=== PATIENT | male | born 1970 | race Caucasian/White ===

== ENCOUNTER → 2016-06-08 | Outpatient (CLI) | payer OTHER ==
[~2016-06-08] MED LIST: AMOX875T PO; DPKSR/250 PO; LAMO200T38 PO
== END | disposition home or self-care (01) ==
LOC: C.LAB1850 11:41
PROVIDERS: ATTEND Psychiatry & Neurology Neurology
DX: G40.209 Localization-related (focal) (partial) symptomatic epilepsy and epileptic syndromes with complex partial seizures, not intractable, without status epilepticus (principal)

== ENCOUNTER 2016-10-02 02:32 | Inpatient (IN) | payer OTHER ==
[2016-10-02] VITALS (19 sets, daily range): BP systolic 86–122; BP diastolic 50–85; PULSE 59–83; TEMP 36.7–37; O2SAT 90–100; Ht 167.6 cm; Wt 106.1 kg
[~2016-10-02] VITALS: Ht 167.6 cm; Wt 106.1 kg
[~2016-10-02 02:32] MED LIST changes: -AMOX875T PO
[2016-10-02] MEDS ORDERED: LORAZEPAM 2 MG/ML 1 ML VIAL ONE (02:41)
[2016-10-02] MEDS ORDERED: NURSING VERBAL MED ORDER ONE (02:42)
--- NOTE | 2016-10-02 02:48 | EMERGENCY ROOM VISIT NOTE ---
History Report prepared by Lindsey: Renea Navarrete Under the Supervision of: Dr. Mamie Rodrigues D.O. First contact with patient: 02:41 Chief Complaint: SEIZURE Stated Complaint: SEIZURE History of Present Illness The patient is a 46 year old male who presents to the Emergency Room with complaints of a sudden seizure that began prior to arrival. Per the patient's , the patient arrived at her job to pick her up from work. She states that she thought she saw the patient scratching his arm, but when she looked back at him, she saw that he was actively seizing. The patient's states that the patient fell down, but does not believe that the patient injured himself. She notes that she had multiple people around helping to take care of him. The patient's notes that the patient has a history of seizures, noting that his last seizure was over five years ago. EMS reports that upon arrival, the patient was not actively seizing, but notes that the patient as post ictal. EMS reports that the patient began actively seizing again and was given 2 mg of Ativan prior to arrival. EMS reports that the patient never came out of his post ictal phase. EMS reports that the patient began seizing again upon arrival to the emergency department. Source of History: spouse/significant other (), EMS Onset: prior to arrival Position: other (global) Quality: other (seizure) Timing: other (sudden) Note: Associated Symptoms: Post ictal Review of Systems See HPI for pertinent positives & negatives. A total of 10 systems reviewed and were otherwise negative. Past Medical & Surgical Medical Problems: (1) Cerebral Palsy Nos (2) Grand Mal Status (3) Hematuria Family History Patient reports no known family medical history. Social History Smoking Status: Never Smoker Marital Status: Housing Status: lives with family Occupation Status: employed Current/Historical Medications Scheduled Divalproex Sodium (Depakote Extended-Release), 500 MG PO BID Lamotrigine (Lamictal), 200 MG PO BID Allergies Coded Allergies: No Known Allergies (Verified , 10/02/16) Physical Exam Vital Signs Date Time Temp Pulse Resp B/P Pulse Ox O2 Delivery O2 Flow Rate FiO2 10/02/16 04:23 74 18 111/78 99 Non-Rebreather 15.0 10/02/16 03:14 97 Non-Rebreather 10/02/16 03:09 78 18 159/118 97 Non-Rebreather 10/02/16 02:46 96 Physical Exam General: Semi-responsive, vomited. HEENT: Head - normocephalic and atraumatic Pupils are 6 mm and nonreactive. Extraocular eye muscles are intact, and sclera are anicteric. Nose - moist nasal mucosa without discharge. Mouth - moist buccal mucosa. Oropharynx is nonerythematous and there is no tonsillar exudate or edema noted. Neck: Supple; no JVD, nuchal rigidity, cervical lymphadenopathy, or auscultated bruits. Heart: Tachycardic rate and regular rhythm. There is a normal S1 and S2 with no murmurs, clicks, or gallops appreciated. Lungs: Clear to auscultation bilaterally with no wheezes, rales, or rhonchi. Abdomen: Soft, completely nontender, nondistended, with good bowel sounds. There are no palpable pulsatile masses or hepatosplenomegaly. There is no guarding, rigidity, or rebound noted. Extremities: No evidence of cyanosis, clubbing, or edema. There are easily palpable peripheral pulses. Skin: warm and dry with good turgor and no rashes. Neuro: Tonic clonic movements at times, would not follow commands. 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 No definite acute infarct by CT. No acute intracranial hemorrhage. No midline shift or hydrocephalus. Diffuse parenchymal atrophy. 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 Radiologist: Sedrick Hall MD Study read at 0320 and initial results transmitted at 0334. Laboratory Results Test 10/02/16 03:35 Valproic Acid (Depakene) Level 47 mcg/ml (50-100) Laboratory results per my review. Medications Administered Medications (Trade) Dose Ordered Sig/Barbara Route Start Time Stop Time Status Last Admin Dose Admin Lorazepam (Ativan Inj) 4 mg STK-MED ONCE .ROUTE 10/02/16 02:41 10/02/16 02:42 DC 10/02/16 02:41 2 MG Miscellaneous Information (Nursing Verbal Med Order) 1 ea ONE ONCE N/A 10/02/16 02:42 10/02/16 02:51 DC 10/02/16 02:42 1 EA Lorazepam 2 mg 2 mg NOW STAT IV 10/02/16 03:11 10/02/16 03:12 DC 10/02/16 03:24 2 MG Levetiracetam/ Dextrose (Keppra Iv/D5 250ml) 267 ml @ 801 mls/hr NOW STAT IV 10/02/16 05:01 10/02/16 05:20 DC 10/02/16 05:34 801 MLS/HR Procedure The patient was treated with Ativan Inj 2 mg IV, Ativan Inj 2 mg IV. ECG Indication: other (seizure) Rate (beats per minute): 84 Rhythm: normal sinus Findings: no acute ischemic change, no ectopy ED Course 0241: Past medical records reviewed. The patient was evaluated in room A10. A complete history and physical exam was performed. Ordered Ativan Inj 2 mg IV as the patient was actively seizing. Seizure precautions were taken. Laboratory studies were drawn as above. The patient went for CT scan of the brain. 0311: Per nursing staff the patient began seizing again. Ordered Ativan Inj 2 mg IV. 0356: I reevaluated the patient and he is no longer seizing and is sleeping. He is currently protecting his own airway. I discussed all the exam findings with the patient's and I discussed the treatment plan. She verbalized complete understanding and agreement. The patient will be evaluated for further treatment. 0415: I discussed the patients case with Dr. Biggs, [facility] [place]. He is going to evaluate the patient for further treatment. 0439: I discussed the patients case with Dr. Meadows, Neurology. He is in agreement with the treatment plan. 0600: I did the department of transportation paperwork to revoke the patients license at this time. Medical Decision The patient is a 46 year old male who presents to the ED with a sudden seizure. Differential diagnosis includes CVA, medication noncompliance, tonic clonic seizure, intracranial hemorrhage. Lab interpretation: white blood cell count of 9.9, hemoglobin 13.9, normal renal functions and LFTs, glucose 112, Depakote level 47. The patient has a history of seizures for which she takes Lamictal and Depakote. He has not had a seizure in quite some time. Department of transportation paperwork was filled out as a result of the seizure. The patient did have to receive a total of 3 doses of IV Ativan for recurrent seizures. He remained post ictal between seizures. This is consistent with acute status epilepticus. I discussed the case with Dr. Meadows and Dr. Mreino. The patient is hemodynamically stable. He'll receive IV Keppra. Consults Time Called: 035 Consulting Physician: KAMI Higgins Returned Call: [phone] I discussed the patients case with KAMI Higgins. He is going to evaluate the patient for further treatment. Additional Consults: Time Called: [phone] Consulted Physician: Dr. Meadows, Neurology Returned Call: [phone] Additional Comments: I discussed the patients case with Dr. Meadows, Neurology. He is in agreement with the treatment plan. Impression Primary Impression: Status epilepticus Critical Care I have personally spent greater than 45 minutes of critical care time in the direct management of this patient. This includes bedside care, interpretation of diagnostic studies, and testing, discussion with consultants, patient, and family members, and other required patient management activities. This 45 minutes is in excess of all separately billable procedures. Scribe Attestation The scribe's documentation has been prepared under my direction and personally reviewed by me in its entirety. I confirm that the note above accurately reflects all work, treatment, procedures, and medical decision making performed by me. Departure Information Dispostion Being Evaluated By Hospitalist Referrals No Doctor, Assigned (PCP)
[2016-10-02] MEDS ORDERED: LORAZEPAM 2 MG/ML 1 ML VIAL IV STA (03:11)
[2016-10-02 03:44] LABS: HEMATOCRIT 40.2 % (42-52); MEAN CELL VOLUME 92.4 fL (80-100); MEAN CORPUSCULAR HGB CONC 34.6 g/dl (32-36); MEAN PLATELET VOLUME 9.6 fL (7.4-10.4); PLATELET COUNT 267 K/uL (130-400); RED BLOOD COUNT 4.35 M/uL (4.7-6.1); WHITE BLOOD COUNT 9.95 K/uL (4.8-10.8)
[2016-10-02 04:06] LABS: ALT/SGPT 18 U/L (12-78); AST/SGOT 18 U/L (15-37); BLOOD UREA NITROGEN 13 mg/dl (7-18); BUN/CREATININE RATIO 12.1 (10-20); CALCIUM 8.2 mg/dl (8.5-10.1); CARBON DIOXIDE 31 mmol/L (21-32); CHLORIDE 106 mmol/L (98-107); GLUCOSE 112 mg/dl (70-99); POTASSIUM 3.7 mmol/L (3.5-5.1); SODIUM 143 mmol/L (136-145)
[2016-10-02 04:08] LABS: ALKALINE PHOSPHATASE 40 U/L (45-117)
[2016-10-02] MEDS ORDERED: LEVETIRACETAM IV ONE (05:00)
[2016-10-02] MEDS ORDERED: DEXTROSE 5% IV ONE (05:00)
[2016-10-02] MEDS ORDERED: ONDANSETRON INJ 2 MG/ML 2 ML VIAL IV PRN (05:00)
[2016-10-02] MEDS ORDERED: LORAZEPAM INJ 1 MG in SYRINGE 0.5 ML IV PRN (05:00)
[2016-10-02] MEDS ORDERED: MoRPHine SULFATE 2 MG/ML CARP IV PRN (05:00)
[2016-10-02] MEDS ORDERED: LEVETIRACETAM IV STA (05:01)
[2016-10-02] MEDS ORDERED: DEXTROSE 5% IV STA (05:01)
[2016-10-02] MEDS ORDERED: LORAZEPAM 2 MG/ML 1 ML VIAL IV PRN (05:15)
[2016-10-02] MEDS ORDERED: VANCOMYCIN INJ 1,000 MG in SODIUM CHLORIDE 0.9% 250ML 250 ML IV STA (05:24)
[2016-10-02] MEDS ORDERED: VANCOMYCIN INJ 2,100 MG in SODIUM CHLORIDE 0.9% 500ML 500 ML IV STA (05:32)
[2016-10-02] MEDS ORDERED: PIPERACILL/TAZOBAC IV 3.375 GM in DEXTROSE 5% 100ML 100 ML IV SCH (06:00)
--- NOTE | 2016-10-02 06:10 | History and Physical ---
History & Physical Date & Time of Service: October 02, 2016 at 05:58 Chief Complaint: Seizure Primary Care Physician: Ger Levin D.O.Int.Med. History of Present Illness Source: spouse, hospital records, EMS The patient is a 46-year-old male with past medical history including cerebral palsy and seizure disorder, with previous last known seizure 5 years ago, who presents to the emergency department with a sudden onset seizure that occurred just prior to arrival. EMS reports that upon their arrival the patient was not actively seizing but he was postictal. He then began actively seizing again and was given 2 mg of Ativan prior to arrival to the ED. He seized again upon arrival to the emergency department and received additional Ativan at that time. For the remainder of the emergency department stay the patient remained sedated and had no further seizures. He was placed on 100% mask, and did initially have significant accessory muscle use, but did settle down to more regular breathing and was converted to nasal cannula 2 L of oxygen prior to transfer to the ICU. Past Medical/Surgical History Medical Problems: (1) Cerebral Palsy Nos Status: Chronic (2) Grand Mal Status Status: Resolved (3) Hematuria Status: Resolved Family History Patient reports no known family medical history. Social History Smoking Status: Never Smoker Smokeless Tobacco Use: No Alcohol Use: none Drug Use: none Marital Status: Housing status: lives with family Occupational Status: employed Immunizations History of Influenza Vaccine: No History of Tetanus Vaccine?: No History of Pneumococcal: No History of Hepatitis B Vaccine: No Multi-Drug Resistant Organisms History of MDRO: No Allergies Coded Allergies: No Known Allergies (Verified , 10/02/16) Home Medications Scheduled Divalproex Sodium (Depakote Extended-Release), 500 MG PO BID Lamotrigine (Lamictal), 200 MG PO BID Review of Systems The patient remained postictal and sedated while in the emergency department, and therefore is not directly to contribute to the history of present illness or review of systems. His did contribute significantly to both. Constitutional: No chills, No fatigue, No fever, No problem reported, No sweats , No weakness, No weight loss Eyes: No diplopia, No discharge, No eye pain, No problem reported, No redness, No worsening of vision ENT: No dental problems, No hearing loss, No nasal symptoms, No problem reported, No sore throat, No tinnitus, No trouble swallowing, No unusual epistaxis Respiratory: No cough, No dyspnea at rest, No dyspnea on exertion, No hemoptysis, No problem reported, No shortness of breath, No sputum, No wheezing Cardiovascular: No PND, No chest pain, No claudication, No edema, No orthopnea , No palpitations, No problem reported Abdomen: No GI bleeding, No constipation, No diarrhea, No nausea, No pain, No problem reported, No vomiting Musculoskeletal: No calf pain, No joint pain, No muscle pain, No problem reported, No swelling Genitourinary - Male: No dysuria, No hematuria, No impotence, No lesions, No penile discharge, No problem reported, No urinary frequency, No urinary hesitancy, No urinary incontinence, No urinary retention, No urinary urgency Neurologic: No balance problems, No memory loss, No numbness/tingling, No paralysis, No problem reported, No vertigo, No weakness Psychiatric: No anhedonism, No anxiety, No depression symptoms, No insomnia, No problem reported, No substance abuse Endocrine: No excessive thirst, No excessive urination, No fatigue, No problem reported Hematologic / Lymphatic: No abnormal bleeding/bruising, No clotting problems, No night sweats, No problem reported, No swollen lymph nodes Integumentary: No bleeding, No color change, No itch, No new/changing skin lesions, No problem reported, No rash Allergic / Immunologic: No environmental allergies, No food allergies, No frequent infections, No hives, No pet sensitivities, No poor healing, No problem reported, No prolonged convalescence, No seasonal allergies Physical Exam Vital Signs Date Time Temp Pulse Resp B/P Pulse Ox O2 Delivery O2 Flow Rate FiO2 10/02/16 05:43 70 16 128/72 98 Nasal Cannula 2.0 10/02/16 04:23 74 18 111/78 99 Non-Rebreather 15.0 10/02/16 03:14 97 Non-Rebreather 10/02/16 03:09 78 18 159/118 97 Non-Rebreather 10/02/16 02:46 96 General Appearance: + moderate distress Head: normocephalic, atraumatic Eyes: normal inspection, PERRL, sclerae normal ENT: normal ENT inspection, pharynx normal Neck: supple, no adenopathy, thyroid normal, no JVD, no carotid bruits, trachea midline Respiratory/Chest: chest non-tender, + decreased breath sounds (at the bases bilaterally), + accessory muscle use, + rhonchi Cardiovascular: no edema, no gallop, no JVD, no murmur, normal peripheral pulses, + tachycardia Abdomen/GI: normal bowel sounds, non tender, soft, no organomegaly, no pulsatile mass Back: normal inspection, no CVA tenderness, no muscle spasm, normal range of motion Extremities/Musculoskelatal: normal inspection, no calf tenderness, normal capillary refill, no pedal edema, normal range of motion, non-tender Neurologic/Psych: + pertinent finding (remained sedated and postictal during entire assessment and stay in the emergency department.) Skin: normal color, warm/dry, no rash Lymphatic: no adenopathy Diagnostics Laboratory Results Results Past 24 Hours Test 10/02/16 03:35 Range/Units White Blood Count 9.95 4.8-10.8 K/uL Red Blood Count 4.35 4.7-6.1 M/uL Hemoglobin 13.9 14.0-18.0 g/dL Hematocrit 40.2 42-52 % Mean Corpuscular Volume 92.4 80-100 fL Mean Corpuscular Hemoglobin 32.0 25-34 pg Mean Corpuscular Hemoglobin Concent 34.6 32-36 g/dl RDW Standard Deviation 44.8 36.4-46.3 fL RDW Coefficient of Variation 13.3 11.5-14.5 % Platelet Count 267 130-400 K/uL Mean Platelet Volume 9.6 7.4-10.4 fL Sodium Level 143 136-145 mmol/L Potassium Level 3.7 3.5-5.1 mmol/L Chloride Level 106 98-107 mmol/L Carbon Dioxide Level 31 21-32 mmol/L Anion Gap 6.0 3-11 mmol/L Blood Urea Nitrogen 13 7-18 mg/dl Creatinine 1.10 0.60-1.40 mg/dl Est Creatinine Clear Calc Drug Dose 86.0 ml/min Estimated GFR () 92.8 Estimated GFR (Non- 80.1 BUN/Creatinine Ratio 12.1 10-20 Random Glucose 112 70-99 mg/dl Calcium Level 8.2 8.5-10.1 mg/dl Total Bilirubin 0.4 0.2-1 mg/dl Direct Bilirubin < 0.1 0-0.2 mg/dl Aspartate Amino Transf (AST/SGOT) 18 15-37 U/L Alanine Aminotransferase (ALT/SGPT) 18 12-78 U/L Alkaline Phosphatase 40 45-117 U/L Total Protein 7.5 6.4-8.2 gm/dl Albumin 3.9 3.4-5.0 gm/dl Valproic Acid (Depakene) Level 47 50-100 mcg/ml Impression Assessment and Plan Status epilepticus--the patient will be admitted to the ICU. He'll be nothing by mouth. We'll therefore hold by mouth lamotrigine. We'll change oral Depakote to Depacon 500 mg IV twice a day. We will add Keppra with loading dose of 1700 mg IV now. His Depakote level was 47 with range 50-100, and lamotrigine level is still pending. We'll start normal saline with potassium chloride 20 mEq 100 mils per hour, Protonix 40 mg IV daily, and Zofran 4 mg IV every 6 hours when necessary. We'll consult Dr. Meadows, who was on-call for the patient's neurologist Dr. Browne. The patient will need an MRI of the brain and an EEG. Aspiration pneumonia secondary to vomiting associated with seizure--place patient empirically on vancomycin IV per renal dosing and Zosyn 3.375 mg IV every 6 hours. Initial chest x-ray shows poor penetration, but looks to show early changes at the bases right greater than left. Level of Care Critical Care Advanced Directives Existing Advance Directive: No Existing Living Will: No Existing Power of Nuclear Weapons Mechanical Specialist: No Resuscitation Status FULL RESUSCITATION VTE Prophylaxis VTE Risk Assessment Done? Y/N: Yes Risk Level: High Given or contraindicated: SCD's Social Service Consult None Apply
--- NOTE | 2016-10-02 06:22 | DIAGNOSTIC IMAGING REPORT ---
HEAD CT NONCONTRAST CT DOSE: 1228.53 mGy.cm HISTORY: Mental status change seizure TECHNIQUE: Multiaxial CT images of the head were performed without the use of intravenous contrast. Comparison: 04/05/2015 Findings: The paranasal sinuses and mastoid air cells are clear. Unchanged infarct of the left cerebral hemisphere involving the left middle cerebral arterial distribution. A subtle chronic midline shift to the left. 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 No evidence for acute intracranial hemorrhage. No major change in the prior study. Impression: Chronic change. No acute process. Electronically signed by: Rusty Cooper M.D. 10/02/2016 6:20 AM Dictated Date/Time: 10/02/2016 6:19 AM
--- NOTE | 2016-10-02 06:28 | DIAGNOSTIC IMAGING REPORT ---
CHEST ONE VIEW PORTABLE CLINICAL HISTORY: eval for sob dyspnea COMPARISON STUDY: 04/05/2015 FINDINGS: Poor respiratory volumes. Bibasilar atelectasis. Mid and upper lungs are considered clear. IMPRESSION: Bibasilar atelectasis. Otherwise negative study within the limitations of poor inspiratory volumes Electronically signed by: Rusty Cooper M.D. 10/02/2016 6:27 AM Dictated Date/Time: 10/02/2016 6:25 AM
[2016-10-02] MEDS ORDERED: PIPERACILL/TAZOBAC IV 3.375 GM in DEXTROSE 5% 100ML IV ONE (06:45)
[2016-10-02] MEDS ORDERED: VANCOMYCIN CONSULT ACTIVE PRN (07:00)
[2016-10-02] MEDS ORDERED: PIPERACILL/TAZOBAC CONSULT ACTIVE PRN (07:00)
[2016-10-02] MEDS: NSS + 20MEQ KCL 1000ML 1,000 ML IV SCH ×2 (08:19→23:54)
[2016-10-02] MEDS ORDERED: VALPROATE SOD IV 500 MG in DEXTROSE 5% 50ML 50 ML IV SCH (09:00)
--- NOTE | 2016-10-02 09:07 | CRITICAL CARE CONSULTATION ---
DATE OF CONSULTATION: 10/02/2016 CHIEF COMPLAINT: Seizure. HISTORY OF PRESENT ILLNESS: The patient is a 46-year-old gentleman with a history of cerebral palsy and seizure disorder, his last seizure being over 5 years ago according to the chart. He was with his last night and she turned around for a moment; when she turned back, he was on the floor having a seizure. EMS was summoned and the patient had another seizure on the way to the Emergency Department, for which he received 2 mg of Ativan. He was described as being postictal prior to the second seizure. He had another seizure in the Emergency Department and received additional Ativan, 4 mg [address] scan of the brain was performed and shows no acute process. There is an unchanged infarct of the left cerebral hemisphere involving the left middle cerebral artery distribution as well as a subtle chronic midline shift to the left. The patient was given 1700 mg of Keppra. He normally takes Depakote ER 500 mg b.i.d. and Lamictal 200 mg b.i.d. His Depakote level is 47. Dr. Biggs discussed the patient's plan of care with the neurology service who will see him later today. PAST MEDICAL HISTORY: Seizure disorder, cerebral palsy, hematuria PAST SURGICAL HISTORY: None listed. Please note the patient's is not presently available to interview. ALLERGIES: No known drug allergies. OUTPATIENT MEDICATIONS: Depakote ER 500 mg b.i.d., Lamictal 200 mg b.i.d. SOCIAL HISTORY: He is and does not drink or smoke. FAMILY HISTORY: None listed in the chart. REVIEW OF SYSTEMS: Not obtainable as the patient is presently sedated on Ativan. PHYSICAL EXAMINATION: GENERAL: This is an overweight male lying in bed, obtunded but able to communicate that he is cold. VITAL SIGNS: Temperature 36.8, heart rate 83, respiratory rate 23, blood pressure 104/80, oxygen saturation 98% on 2 liters nasal cannula. HEENT: Pupils are equal and briskly reactive bilaterally, no scleral icterus. Oral mucosa is moist. There is no evidence of trauma to the tongue. He has what may be chewing tobacco on his tongue and gums. No evidence of trauma. NECK: No adenopathy. Trachea midline. LUNGS: Clear to auscultation bilaterally. No rales, rhonchi or wheezes. HEART: Regular rate and rhythm. CHEST: Symmetric expansion. ABDOMEN: Obese, soft, nontender, active bowel sounds. EXTREMITIES: Warm. The right upper and lower extremity are smaller and shorter than the left upper and lower extremity. Radial and dorsalis pedis pulses are 2+ bilaterally. NEUROLOGIC: He moves all 4 extremities to command. Tongue is midline. No facial droop. Exam overall is limited by his sedation with Ativan. He can tell me his name, that he is cold but does not open his eyes spontaneously. LABORATORY DATA: Valproic acid 47. White blood cell count 9.95, hemoglobin 13.9, hematocrit 40.2, platelets 267. Sodium 143, potassium 3.7, chloride 106, CO2 of 31, BUN 13, creatinine 1.1. Blood sugar 112. Calcium 8.2. Total bilirubin 0.4, direct bilirubin less than 0.1. AST and ALT within normal limits. Alkaline phosphatase 40. Total protein 7.5, albumin 3.9. Portable chest x-ray shows bibasilar atelectasis and was reviewed. EKG, normal sinus rhythm, nonspecific ST-T wave changes. IMPRESSION: 1. Status epilepticus, loaded with Keppra at 1700 mg and status post 8 mg of Ativan between EMS and the Emergency Department. 2. Postictal state. 3. History of seizure disorder. 4. History of cerebral palsy. 5. Possible aspiration pneumonia or pneumonitis, vomit was found on the patient when he initially presented. PLAN: 1. Neurology consultation. 2. MRI. 3. EEG. 4. Depakote ER has been changed to Depacon 500 mg IV b.i.d. 5. Continue Ativan p.r.n. breakthrough seizure activity. 6. N.p.o. status for now. 7. Provide DVT and GI prophylaxis. 8. Obtain additional history once his is available. Thank you for asking me to see this patient. Please call me with any questions or concerns. Addendum: Care discussed with Dr. Meadows after he evaluated the patient. 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 Additionally, he may increase his Lamictal. He also tells me he has spastic hemiparesis. [facility]
[2016-10-02] MEDS: PANTOprazole INJ 40 MG in SYRINGE 0 ML IV SCH (09:08)
--- NOTE | 2016-10-02 09:17 | Pharmacy Progress Note ---
Pharmacy Antibiotic Consult Date of Service: October 02, 2016. Pharmacy Dosing Scope Pharmacy is consulted to initiate Vanco/Zosyn IV dosing therapy, order appropriate labs and adjust drug dose/frequency. Subjective The patient is a 46 year old male admitted on October 02, 2016 at 05:01. Objective Height (Feet): 5 Height (Inches): 6.00 Weight (Kilograms): 106.000 Lab Results (24hrs): Test 10/02/16 03:35 White Blood Count 9.95 K/uL (4.8-10.8) Red Blood Count 4.35 M/uL (4.7-6.1) Hemoglobin 13.9 g/dL (14.0-18.0) Hematocrit 40.2 % (42-52) Mean Corpuscular Volume 92.4 fL (80-100) Mean Corpuscular Hemoglobin 32.0 pg (25-34) Mean Corpuscular Hemoglobin Concent 34.6 g/dl (32-36) RDW Standard Deviation 44.8 fL (36.4-46.3) RDW Coefficient of Variation 13.3 % (11.5-14.5) Platelet Count 267 K/uL (130-400) Mean Platelet Volume 9.6 fL (7.4-10.4) Sodium Level 143 mmol/L (136-145) Potassium Level 3.7 mmol/L (3.5-5.1) Chloride Level 106 mmol/L (98-107) Carbon Dioxide Level 31 mmol/L (21-32) Anion Gap 6.0 mmol/L (3-11) Blood Urea Nitrogen 13 mg/dl (7-18) Creatinine 1.10 mg/dl (0.60-1.40) Est Creatinine Clear Calc Drug Dose 86.0 ml/min Estimated GFR () 92.8 Estimated GFR (Non- 80.1 BUN/Creatinine Ratio 12.1 (10-20) Random Glucose 112 mg/dl (70-99) Calcium Level 8.2 mg/dl (8.5-10.1) Total Bilirubin 0.4 mg/dl (0.2-1) Direct Bilirubin < 0.1 mg/dl (0-0.2) Aspartate Amino Transf (AST/SGOT) 18 U/L (15-37) Alanine Aminotransferase (ALT/SGPT) 18 U/L (12-78) Alkaline Phosphatase 40 U/L (45-117) Total Protein 7.5 gm/dl (6.4-8.2) Albumin 3.9 gm/dl (3.4-5.0) Valproic Acid (Depakene) Level 47 mcg/ml (50-100) Micro Results: Item Value Date Time MRSA DNA Surveillance Screen Received 10/02/16 0630 Nasal Pending Assessment & Plan Pt is a 46yo M admitted for status epi at risk for aspiration PNA. Pt received LD of Vanco 2100mg IV x1 (20mg/kg). Set to receive Vanco 1500mg (14mg/kg) Q10 starting at 1400 on 10/02/16. Will order a Vanco trough to be drawn at 0930 on 10/03. This is prior to the third MD and therefore not Css. Pt does not have a h/ o of MDRO. Pt population p'kinetics: ke=0.0757, t1/2=9.1hrs. MRSA nasal swab is pending. No other c/s's have been drawn. Pt is afebrile, WBC/RR/HR are all WNL. Pt's BMI is indicative of potential Vanco accumulation. Zosyn: Pt received Zosyn 3.375g 30min infsn at 0645. I will increase Zosyn MD to 4.5g q8 due to the pt's BMI being >35. Appropriate for clinical status and eCrCl>20cc /min. Thank you for consulting the pharmacy kinetic team and including us in the care of Mr. Zhang. Pharmacy will continue to follow and will adjust dose/frequency as necessary. Thank you
--- NOTE | 2016-10-02 11:40 | Neurology Consultation ---
Neurology Consultation Date of Consultation: October 02, 2016. Attending Physician: Audi Biggs M.D. Primary Care Physician: Ger Levin D.O.Int.Med. Reason for Consultation: Seizure disorder, recent seizure History of Present Illness Source: clinic records, hospital records The patient is a 46-year-old male with a past medical history of seizure disorder and hemiplegic cerebral palsy. He typically follows with Dr. Browne and was last seen in May of this year. The patient's seizures are typically focal motor and characterized by shaking of the right upper extremity without associated loss of consciousness. However, he has exhibited some generalized convulsions in the past, presumably focal motor seizures with secondary generalization. He has been prescribed Depakote and Lamictal for the past few years. The dosage of these medications has not changed. His last convulsive episode occurred on 04/05/2015. There have been some issues with medication compliance noted in the past. The patient presented to the emergency department last night after several convulsive episodes without return to his typical baseline status. According to admission records, the patient was picking up his from work. His reportedly noticed that he was moving his arm. She then realized he was having a seizure. He apparently fell down all of did not sustain obvious injuries. He was confused during his initial evaluation with emergency medical personnel. The patient reportedly began seizing again and he was treated with lorazepam. He then had another seizure upon arrival to the emergency department. He has not returned to his baseline status and is currently in the ICU. He is obtunded after receiving multiple dosages of lorazepam as well as a loading dose of Keppra. He CT of the head completed in the emergency department reveals chronic encephalomalacia within the territory of the left middle cerebral artery. There is compensatory left ventricular enlargement. Arnaldo-cisterna magna is also observed. These changes were also seen on a brain MRI completed in March 2015 and are unchanged. I reviewed both the images and radiologist's interpretation of these tests. A previous electroencephalogram has revealed generalized rhythmic sharps suggestive of an underlying seizure disorder. The findings were not localizing, however. A valproic acid level obtained during this admission is 47.6. A Depakote level obtained this past May was 75 during which time the patient was taking 500 mg twice daily. Past Medical/Surgical History Medical Problems: (1) Dizziness Status: Acute (2) Status epilepticus Status: Acute Family History There is a family history of diabetes mellitus. No documented history of an epilepsy syndrome in a first-degree relative. Social History Smokeless Tobacco Use: No Alcohol Use: none Drug Use: none Marital Status: Housing Status: lives with family Occupation Status: employed Allergies Coded Allergies: No Known Allergies (Verified , 10/02/16) Current Inpatient Medications Current Inpatient Medications Medications (Trade) Dose Ordered Sig/Barbara Route Start Time Stop Time Status Last Admin Dose Admin Potassium Chloride/Sodium Chloride 1,000 ml @ 100 mls/hr Q10H IV 10/02/16 06:45 11/01/16 06:44 10/02/16 08:19 100 MLS/HR Pantoprazole Sodium/Syringe (Protonix Inj/ Syringe) 10 ml @ 5 mls/min DAILY IV 10/02/16 09:00 11/01/16 08:59 10/02/16 09:08 5 MLS/MIN Morphine Sulfate 2 mg 2 mg Q2H PRN IV 10/02/16 05:00 10/16/16 04:59 Valproate Sodium 500 mg/Dextrose 55 ml @ 55 mls/hr BID IV 10/02/16 09:00 11/01/16 08:59 10/02/16 08:20 55 MLS/HR Lorazepam/Syringe (Ativan Inj/ Syringe) 1 ml @ 0.5 mls/min Q5M PRN IV 10/02/16 05:00 11/01/16 04:59 Ondansetron HCl (Zofran Inj) 4 mg Q6H PRN IV 10/02/16 05:00 11/01/16 04:59 Lorazepam (Ativan Inj) 1 mg Q5M PRN IV 10/02/16 05:15 11/01/16 05:14 Piperacillin Sod/ Tazobactam Sod (Consult) 1 ea UD PRN N/A 10/02/16 07:00 11/01/16 06:59 Vancomycin HCl 1 ea 1 ea UD PRN N/A 10/02/16 07:00 11/01/16 06:59 Vancomycin HCl 1500 mg/Sodium Chloride 530 ml @ 200 mls/hr Q10H IV 10/02/16 14:00 10/09/16 13:59 Piperacillin Sod/ Tazobactam Sod/ Dextrose (Zosyn Iv/D5 100ml) 120 ml @ 30 mls/hr Q8H IV 10/02/16 12:00 10/09/16 11:59 Review of Systems Unable to obtain a review of systems as patient is obtunded. Physical Exam Vital Signs (Past 24 Hrs): Date Time Temp Pulse Resp B/P Pulse Ox O2 Delivery O2 Flow Rate FiO2 10/02/16 10:00 66 14 95/63 98 10/02/16 09:00 68 15 94/73 100 10/02/16 08:00 36.9 10/02/16 08:00 Nasal Cannula 2.0 10/02/16 08:00 69 16 116/79 100 10/02/16 07:17 73 14 122/85 100 10/02/16 06:30 36.8 83 23 104/80 98 Nasal Cannula 2.0 10/02/16 05:43 70 16 128/72 98 Nasal Cannula 2.0 10/02/16 04:23 74 18 111/78 99 Non-Rebreather 15.0 10/02/16 03:14 97 Non-Rebreather 10/02/16 03:09 78 18 159/118 97 Non-Rebreather 10/02/16 02:46 96 Limited neurological examination due to patient's obtundation. The patient is snoring loudly. He moans briefly to a combination of voice and mild noxious stimulation. He does not open his eyes to command. He does not verbally respond or follow verbal commands. Pupils are equal, round, and reactive to light. There is no nystagmus or gaze preference. Oculocephalic reflexes intact. Corneal reflexes intact. Gag reflex intact. There is foreshortening and atrophy of the right arm and leg as compared to the left. The right hand is held in a somewhat clasped posture. There is some associated flexion at the right elbow as well. Muscle tone is slightly increased for the right upper and lower extremities compared to the left. No abnormal movements are observed. Deep tendon reflexes are diffusely diminished at this time. Plantar responses are silent at this time. Laboratory Results Past 24 Hours: 10/02/16 03:35 10/02/16 03:35 Test 10/02/16 03:35 Red Blood Count 4.35 M/uL (4.7-6.1) Mean Corpuscular Volume 92.4 fL (80-100) Mean Corpuscular Hemoglobin 32.0 pg (25-34) Mean Corpuscular Hemoglobin Concent 34.6 g/dl (32-36) RDW Standard Deviation 44.8 fL (36.4-46.3) RDW Coefficient of Variation 13.3 % (11.5-14.5) Mean Platelet Volume 9.6 fL (7.4-10.4) Anion Gap 6.0 mmol/L (3-11) Est Creatinine Clear Calc Drug Dose 86.0 ml/min Estimated GFR () 92.8 Estimated GFR (Non- 80.1 BUN/Creatinine Ratio 12.1 (10-20) Calcium Level 8.2 mg/dl (8.5-10.1) Total Bilirubin 0.4 mg/dl (0.2-1) Direct Bilirubin < 0.1 mg/dl (0-0.2) Aspartate Amino Transf (AST/SGOT) 18 U/L (15-37) Alanine Aminotransferase (ALT/SGPT) 18 U/L (12-78) Alkaline Phosphatase 40 U/L (45-117) Total Protein 7.5 gm/dl (6.4-8.2) Albumin 3.9 gm/dl (3.4-5.0) Valproic Acid (Depakene) Level 47 mcg/ml (50-100) Date/Time Source Procedure Growth Status 10/02/16 06:30 Nasal MRSA DNA Surveillance Screen - Final Specimen Negative for MRSA by DNA Probe Complete Impression 46-year-old male with a history of hemiplegic cerebral palsy and focal motor seizures with secondary generalization. He presents with several of his typical seizure episodes, without return to baseline. He is currently obtunded related in part to use of benzodiazepines as well as being postictal. There may be some issues with anticonvulsant compliance as his Depakote level is somewhat low. Plan Increase dosage of Depakote to 750 mg twice daily. May use IV for now but would transition to tablets when patient able to tolerate. Would resume Lamictal 200 mg twice daily when patient able to tolerate tablets. Would continue with IV Keppra for the time being. Would give 500 mg IV every 12 hours until he is able to reliably take his Lamictal by mouth. Bedside electroencephalogram.
[2016-10-02] MEDS: PIPERACILL/TAZOBAC IV 4.5 GM in DEXTROSE 5% 100ML IV SCH ×2 (11:45→19:43)
[2016-10-02] MEDS ORDERED: PIPERACILL/TAZOBAC IV 3.375 GM in DEXTROSE 5% 100ML IV SCH (12:00)
--- NOTE | 2016-10-02 12:50 | EEG Procedure Note ---
EEG Procedure Note Date of Service October 02, 2016. Start / End Times Start Time: 11:14 AM End Time: 11:34 AM Referring Physician Dori History Seizure disorder, hemiplegic cerebral palsy, encephalomalacia of the left cerebral hemisphere, obtundation Home Medication List Scheduled Divalproex Sodium (Depakote Extended-Release), 500 MG PO BID Lamotrigine (Lamictal), 200 MG PO BID Inpatient Medication List Current Inpatient Medications Medications (Trade) Dose Ordered Sig/Barbara Route Start Time Stop Time Status Last Admin Dose Admin Potassium Chloride/Sodium Chloride 1,000 ml @ 100 mls/hr Q10H IV 10/02/16 06:45 11/01/16 06:44 10/02/16 08:19 100 MLS/HR Pantoprazole Sodium/Syringe (Protonix Inj/ Syringe) 10 ml @ 5 mls/min DAILY IV 10/02/16 09:00 11/01/16 08:59 10/02/16 09:08 5 MLS/MIN Morphine Sulfate 2 mg 2 mg Q2H PRN IV 10/02/16 05:00 10/16/16 04:59 Lorazepam/Syringe (Ativan Inj/ Syringe) 1 ml @ 0.5 mls/min Q5M PRN IV 10/02/16 05:00 11/01/16 04:59 Ondansetron HCl (Zofran Inj) 4 mg Q6H PRN IV 10/02/16 05:00 11/01/16 04:59 Lorazepam (Ativan Inj) 1 mg Q5M PRN IV 10/02/16 05:15 11/01/16 05:14 Piperacillin Sod/ Tazobactam Sod (Consult) 1 ea UD PRN N/A 10/02/16 07:00 11/01/16 06:59 Vancomycin HCl 1 ea 1 ea UD PRN N/A 10/02/16 07:00 11/01/16 06:59 Vancomycin HCl 1500 mg/Sodium Chloride 530 ml @ 200 mls/hr Q10H IV 10/02/16 14:00 10/09/16 13:59 Piperacillin Sod/ Tazobactam Sod 4.5 gm/Dextrose 120 ml @ 30 mls/hr Q8H IV 10/02/16 12:00 10/09/16 11:59 10/02/16 11:45 30 MLS/HR Valproate Sodium 750 mg/Dextrose 57.5 ml @ 55 mls/hr BID IV 10/02/16 21:00 11/01/16 20:59 Levetiracetam/ Dextrose (Keppra Iv/D5 100ml) 105 ml @ 420 mls/hr Q12 IV 10/02/16 21:00 11/01/16 20:59 Description This is a 21 electrode EEG with a single channel dedicated to limited EKG. The electrodes were placed in accordance with the International 10-20 system. This is a bedside EEG obtained in the ICU. The predominant background rhythm consists of a poorly organized mix of theta and alpha frequencies. Waxing and waning rhythmic right frontocentral sharp waves occur intermittently, with a duration of about 2 seconds, throughout the study. There is no clinical accompaniment. There is a moderate degree of movement artifact. Interpretation This is an abnormal EEG. The findings are suggestive of encephalopathy. The observed waxing and waning right frontocentral sharp waves have the appearance of asymmetric sleep spindles. Clinical Correlation This EEG suggests encephalopathy which may be related to either use of benzodiazepines or a prolonged postictal state. The observed sleep spindles are seen primarily over the right cerebral hemisphere. This asymmetry is probably due to the severe underlying encephalomalacia of the left cerebral hemisphere. There is no evidence of status epilepticus at this time. Please see today's neurology consult for further details.
[2016-10-02 13:30] LABS: CKMB/CK RATIO 1.1 (0-3.0)
[2016-10-02] MEDS: VANCOMYCIN INJ 1,500 MG in SODIUM CHLORIDE 0.9% 500ML 500 ML IV SCH ×2 (15:00→23:54)
[2016-10-02] MEDS: VALPROATE SOD IV 750 MG in DEXTROSE 5% 50ML 50 ML IV SCH (20:44)
[2016-10-02] MEDS: LEVETIRACETAM IV 500 MG in DEXTROSE 5% 100ML 100 ML IV SCH (20:45)
[2016-10-03] VITALS (14 sets, daily range): BP systolic 91–132; BP diastolic 63–87; PULSE 51–67; TEMP 36.4–36.9; O2SAT 91–99
[2016-10-03] MEDS: PIPERACILL/TAZOBAC IV 4.5 GM in DEXTROSE 5% 100ML IV SCH ×3 (03:39→19:46)
[2016-10-03 05:35] LABS: BASO % 0.6 %; BASO ABS # 0.05 K/uL (0-0.2); COMPLETE YES; HEMATOCRIT 36.7 % (42-52); IG% 0.1 %; LYMPH % 36.9 %; LYMPH ABS # 3.07 K/uL (1.2-3.4); MEAN CELL VOLUME 93.9 fL (80-100); MEAN CORPUSCULAR HEMOGLOBIN 31.5 pg (25-34); MEAN CORPUSCULAR HGB CONC 33.5 g/dl (32-36); MEAN PLATELET VOLUME 8.8 fL (7.4-10.4); MONO % 9.4 %; PLATELET COUNT 242 K/uL (130-400); RED BLOOD COUNT 3.91 M/uL (4.7-6.1); WHITE BLOOD COUNT 8.33 K/uL (4.8-10.8)
[2016-10-03 05:51] LABS: INR 1.1 (0.9-1.1); PROTHROMBIN TIME (PATIENT) 11.3 SECONDS (9.0-12.0)
[2016-10-03 05:58] LABS: BUN/CREATININE RATIO 10.8 (10-20); CALCIUM 7.3 mg/dl (8.5-10.1); CREATININE 0.92 mg/dl (0.60-1.40); POTASSIUM 3.8 mmol/L (3.5-5.1)
[2016-10-03 06:02] LABS: PHOSPHORUS 2.1 mg/dl (2.5-4.9)
--- NOTE | 2016-10-03 07:17 | DIAGNOSTIC IMAGING REPORT ---
CHEST ONE VIEW PORTABLE CLINICAL HISTORY: Abnormal chest x-ray. Shortness of breath. COMPARISON STUDY: 10/02/2016 FINDINGS: The heart is at the upper limits of normal in size. There are linear opacities the left lung base, consistent with subsegmental atelectasis. There is persistent right basilar atelectasis/consolidation. There is minor blunting right lateral costophrenic angle. There is no overt failure.[ IMPRESSION: Stable bibasilar opacities. While likely atelectatic, an infectious/inflammatory component at the right lung base cannot be excluded Electronically signed by: Luis Alfredo Adamson M.D. 10/03/2016 7:15 AM Dictated Date/Time: 10/03/2016 7:14 AM
[2016-10-03] MEDS: PANTOprazole INJ 40 MG in SYRINGE 0 ML IV SCH (08:30)
[2016-10-03] MEDS: VALPROATE SOD IV 750 MG in DEXTROSE 5% 50ML 50 ML IV SCH (08:30)
[2016-10-03] MEDS: LEVETIRACETAM IV 500 MG in DEXTROSE 5% 100ML 100 ML IV SCH (08:30)
[2016-10-03] MEDS ORDERED: VANCOMYCIN TROUGH ONE (09:30)
--- NOTE | 2016-10-03 10:42 | Neurology Progress Notes ---
Neurology Progress Note Date of Service October 03, 2016. Subjective Follow-up for seizure The patient was admitted to the intensive care unit yesterday after several generalized convulsive seizures. He has a history of hemiplegic cerebral palsy and seizure disorder characterized by focal motor seizures involving the right upper extremity, sometimes followed by secondary generalization. He has had some issues with medication compliance in the past. His valproic acid level was slightly subtherapeutic at the time of presentation. His Depakote dosage was increased yesterday. He is also prescribed Lamictal as an outpatient although this medication is on hold until he can reliably take medications by mouth. The patient is currently receiving Keppra IV as well. I reviewed the nursing documentation, no additional seizures have occurred. I reviewed yesterday's electroencephalogram. Study reveals encephalopathy as well as sleep spindles that are distributed asymmetrically likely due to his underlying, severe, encephalomalacia of the left cerebral hemisphere. The patient does not have any recollection of his recent seizures. He does complain of feeling a little tired currently. He denies headache, muscle pain, or weakness. Objective Date Time Temp Pulse Resp B/P Pulse Ox O2 Delivery O2 Flow Rate FiO2 10/03/16 05:11 36.4 10/03/16 04:13 93 Room Air 2.0 10/03/16 04:00 55 14 105/71 91 10/03/16 03:33 51 14 95/73 95 10/03/16 03:00 59 13 103/71 94 10/03/16 02:00 55 12 109/65 92 10/03/16 01:00 55 11 105/67 99 10/03/16 00:00 36.6 59 20 91/63 93 10/03/16 00:00 93 Room Air 2.0 10/02/16 23:00 59 19 113/66 93 10/02/16 22:00 66 26 116/67 96 Room Air 10/02/16 21:00 64 16 116/67 96 10/02/16 20:08 93 Nasal Cannula 2.0 10/02/16 20:00 36.7 62 14 111/64 97 10/02/16 19:00 65 31 108/58 92 10/02/16 18:00 61 22 104/60 93 10/02/16 17:00 64 14 112/59 97 10/02/16 16:00 Nasal Cannula 2.0 10/02/16 16:00 36.8 10/02/16 16:00 65 16 98/50 91 10/02/16 15:00 63 19 86/63 90 10/02/16 14:00 63 14 111/67 98 10/02/16 13:00 64 20 102/68 95 10/02/16 12:00 37.0 10/02/16 12:00 62 13 95/66 98 10/02/16 12:00 Nasal Cannula 2.0 10/02/16 11:00 67 17 98/85 99 10/02/16 10:00 66 14 95/63 98 10/02/16 09:00 68 15 94/73 100 Last 24 Hours Test 10/02/16 11:45 10/02/16 12:56 10/02/16 20:48 10/03/16 00:34 Bedside Glucose 90 mg/dl 82 mg/dl Total Creatine Kinase 267 U/L 189 U/L Creatine Kinase MB 2.9 ng/ml 1.9 ng/ml Creatine Kinase MB Ratio 1.1 1.0 Troponin I < 0.015 ng/ml < 0.015 ng/ml Test 10/03/16 05:13 White Blood Count 8.33 K/uL Red Blood Count 3.91 M/uL Hemoglobin 12.3 g/dL Hematocrit 36.7 % Mean Corpuscular Volume 93.9 fL Mean Corpuscular Hemoglobin 31.5 pg Mean Corpuscular Hemoglobin Concent 33.5 g/dl Platelet Count 242 K/uL Mean Platelet Volume 8.8 fL Neutrophils (%) (Auto) 51.0 % Lymphocytes (%) (Auto) 36.9 % Monocytes (%) (Auto) 9.4 % Eosinophils (%) (Auto) 2.0 % Basophils (%) (Auto) 0.6 % Neutrophils # (Auto) 4.25 K/uL Lymphocytes # (Auto) 3.07 K/uL Monocytes # (Auto) 0.78 K/uL Eosinophils # (Auto) 0.17 K/uL Basophils # (Auto) 0.05 K/uL RDW Standard Deviation 46.9 fL RDW Coefficient of Variation 13.7 % Immature Granulocyte % (Auto) 0.1 % Immature Granulocyte # (Auto) 0.01 K/uL Prothrombin Time 11.3 SECONDS Prothromb Time International Ratio 1.1 Activated Partial Thromboplast Time 25.8 SECONDS Partial Thromboplastin Ratio 1.0 Sodium Level 145 mmol/L Potassium Level 3.8 mmol/L Chloride Level 111 mmol/L Carbon Dioxide Level 30 mmol/L Anion Gap 4.0 mmol/L Blood Urea Nitrogen 10 mg/dl Creatinine 0.92 mg/dl Est Creatinine Clear Calc Drug Dose 114.5 ml/min Estimated GFR () 115.2 Estimated GFR (Non- 99.4 BUN/Creatinine Ratio 10.8 Random Glucose 79 mg/dl Calcium Level 7.3 mg/dl Phosphorus Level 2.1 mg/dl Magnesium Level 2.0 mg/dl Total Bilirubin 0.6 mg/dl Direct Bilirubin 0.2 mg/dl Aspartate Amino Transf (AST/SGOT) 9 U/L Alanine Aminotransferase (ALT/SGPT) 14 U/L Alkaline Phosphatase 33 U/L Total Protein 6.1 gm/dl Albumin 2.8 gm/dl Exam: The patient is a well-nourished middle-aged male. He was examined sitting up in a bedside chair in the ICU. He is in no acute distress. He is alert and oriented to person place and time. He is mildly inattentive. He exhibits a normal fluent speech pattern. Vocabulary normal. There is a visual field deficit to the right with confrontation testing. Pupils equal round reactive to light and accommodation. There is strabismus of the right eye. There is some horizontal and vertical gaze evoked nystagmus. Eye movements are otherwise normal. I do not find an obvious facial droop. Palate elevates to midline. Tongue protrudes to midline. Hearing intact bilaterally. Deep tendon reflexes are 2+ for the right upper extremity, 1+ for the left upper extremity. I'm unable to elicit a patellar tendon reflex on the right. Left patellar tendon reflex 1+. There is a right hemiparesis affecting the arm and leg with associated flexor spasticity of the right upper extremity and mild extensor spasticity of the right lower extremity. There is foreshortening and atrophy of the right arm and leg as well. No tremors observed. Current Inpatient Medications Medications (Trade) Dose Ordered Sig/Barbara Route Start Time Stop Time Status Last Admin Dose Admin Potassium Chloride/Sodium Chloride 1,000 ml @ 100 mls/hr Q10H IV 10/02/16 06:45 11/01/16 06:44 10/02/16 23:54 100 MLS/HR Pantoprazole Sodium/Syringe (Protonix Inj/ Syringe) 10 ml @ 5 mls/min DAILY IV 10/02/16 09:00 11/01/16 08:59 10/03/16 08:30 5 MLS/MIN Morphine Sulfate 2 mg 2 mg Q2H PRN IV 10/02/16 05:00 10/16/16 04:59 Lorazepam/Syringe (Ativan Inj/ Syringe) 1 ml @ 0.5 mls/min Q5M PRN IV 10/02/16 05:00 11/01/16 04:59 Ondansetron HCl (Zofran Inj) 4 mg Q6H PRN IV 10/02/16 05:00 11/01/16 04:59 Lorazepam (Ativan Inj) 1 mg Q5M PRN IV 10/02/16 05:15 11/01/16 05:14 Piperacillin Sod/ Tazobactam Sod (Consult) 1 ea UD PRN N/A 10/02/16 07:00 11/01/16 06:59 Vancomycin HCl 1 ea 1 ea UD PRN N/A 10/02/16 07:00 11/01/16 06:59 Vancomycin HCl 1500 mg/Sodium Chloride 530 ml @ 200 mls/hr Q10H IV 10/02/16 14:00 10/09/16 13:59 10/02/16 23:54 200 MLS/HR Piperacillin Sod/ Tazobactam Sod 4.5 gm/Dextrose 120 ml @ 30 mls/hr Q8H IV 10/02/16 12:00 10/09/16 11:59 10/03/16 03:39 30 MLS/HR Valproate Sodium 750 mg/Dextrose 57.5 ml @ 55 mls/hr BID IV 10/02/16 21:00 11/01/16 20:59 10/03/16 08:30 55 MLS/HR Levetiracetam/ Dextrose (Keppra Iv/D5 100ml) 105 ml @ 420 mls/hr Q12 IV 10/02/16 21:00 11/01/16 20:59 10/03/16 08:30 420 MLS/HR Impression Focal motor seizures with secondary generalization. Recent breakthrough seizures possibly related to medication noncompliance as his valproic acid level was low upon presentation. 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 Chronic right visual field deficit also likely related to CP. Plan Continue Depakote 750 mg twice daily. May transition to oral medication, Depakote DR rutledge. Restart Lamictal 200 mg twice daily. May stop Keppra IV. Patient will need to follow-up in neurology clinic with Dr. Browne for ongoing management of his epilepsy.
--- NOTE | 2016-10-03 11:09 | Progress Note ---
Subjective Date of Service: October 03, 2016. Subjective pt is doing well, little chest pain and minor cough Problem List Medical Problems: (1) Dizziness Status: Acute (2) Status epilepticus Status: Acute Review of Systems Constitutional: No chills, No fever Respiratory: + cough, No dyspnea on exertion, No shortness of breath, No sputum Cardiac: No chest pain Abdomen: No diarrhea, No nausea, No pain, No vomiting Male : No dysuria, No urinary frequency Objective Vital Signs Date Time Temp Pulse Resp B/P Pulse Ox O2 Delivery O2 Flow Rate FiO2 10/03/16 05:11 36.4 10/03/16 04:13 93 Room Air 2.0 10/03/16 04:00 55 14 105/71 91 10/03/16 03:33 51 14 95/73 95 10/03/16 03:00 59 13 103/71 94 10/03/16 02:00 55 12 109/65 92 10/03/16 01:00 55 11 105/67 99 10/03/16 00:00 36.6 59 20 91/63 93 10/03/16 00:00 93 Room Air 2.0 10/02/16 23:00 59 19 113/66 93 10/02/16 22:00 66 26 116/67 96 Room Air 10/02/16 21:00 64 16 116/67 96 10/02/16 20:08 93 Nasal Cannula 2.0 10/02/16 20:00 36.7 62 14 111/64 97 10/02/16 19:00 65 31 108/58 92 10/02/16 18:00 61 22 104/60 93 10/02/16 17:00 64 14 112/59 97 10/02/16 16:00 Nasal Cannula 2.0 10/02/16 16:00 36.8 10/02/16 16:00 65 16 98/50 91 10/02/16 15:00 63 19 86/63 90 10/02/16 14:00 63 14 111/67 98 10/02/16 13:00 64 20 102/68 95 10/02/16 12:00 37.0 10/02/16 12:00 62 13 95/66 98 10/02/16 12:00 Nasal Cannula 2.0 10/02/16 11:00 67 17 98/85 99 10/02/16 10:00 66 14 95/63 98 10/02/16 09:00 68 15 94/73 100 10/02/16 08:00 36.9 10/02/16 08:00 Nasal Cannula 2.0 10/02/16 08:00 69 16 116/79 100 Physical Exam General Appearance: WD/WN, + mild distress Neck: supple, no JVD Respiratory/Chest: chest non-tender, no respiratory distress, + rhonchi (rll) Cardiovascular: regular rate, rhythm, no murmur Abdomen: normal bowel sounds, non tender, soft Extremities: no pedal edema, no calf tenderness Laboratory Results Last 24 Hours Test 10/02/16 11:45 10/02/16 12:56 10/02/16 20:48 10/03/16 00:34 Bedside Glucose 90 mg/dl 82 mg/dl Total Creatine Kinase 267 U/L 189 U/L Creatine Kinase MB 2.9 ng/ml 1.9 ng/ml Creatine Kinase MB Ratio 1.1 1.0 Troponin I < 0.015 ng/ml < 0.015 ng/ml Test 10/03/16 05:13 White Blood Count 8.33 K/uL Red Blood Count 3.91 M/uL Hemoglobin 12.3 g/dL Hematocrit 36.7 % Mean Corpuscular Volume 93.9 fL Mean Corpuscular Hemoglobin 31.5 pg Mean Corpuscular Hemoglobin Concent 33.5 g/dl Platelet Count 242 K/uL Mean Platelet Volume 8.8 fL Neutrophils (%) (Auto) 51.0 % Lymphocytes (%) (Auto) 36.9 % Monocytes (%) (Auto) 9.4 % Eosinophils (%) (Auto) 2.0 % Basophils (%) (Auto) 0.6 % Neutrophils # (Auto) 4.25 K/uL Lymphocytes # (Auto) 3.07 K/uL Monocytes # (Auto) 0.78 K/uL Eosinophils # (Auto) 0.17 K/uL Basophils # (Auto) 0.05 K/uL RDW Standard Deviation 46.9 fL RDW Coefficient of Variation 13.7 % Immature Granulocyte % (Auto) 0.1 % Immature Granulocyte # (Auto) 0.01 K/uL Prothrombin Time 11.3 SECONDS Prothromb Time International Ratio 1.1 Activated Partial Thromboplast Time 25.8 SECONDS Partial Thromboplastin Ratio 1.0 Sodium Level 145 mmol/L Potassium Level 3.8 mmol/L Chloride Level 111 mmol/L Carbon Dioxide Level 30 mmol/L Anion Gap 4.0 mmol/L Blood Urea Nitrogen 10 mg/dl Creatinine 0.92 mg/dl Est Creatinine Clear Calc Drug Dose 114.5 ml/min Estimated GFR () 115.2 Estimated GFR (Non- 99.4 BUN/Creatinine Ratio 10.8 Random Glucose 79 mg/dl Calcium Level 7.3 mg/dl Phosphorus Level 2.1 mg/dl Magnesium Level 2.0 mg/dl Total Bilirubin 0.6 mg/dl Direct Bilirubin 0.2 mg/dl Aspartate Amino Transf (AST/SGOT) 9 U/L Alanine Aminotransferase (ALT/SGPT) 14 U/L Alkaline Phosphatase 33 U/L Total Protein 6.1 gm/dl Albumin 2.8 gm/dl Assessment and Plan 46 M with seizure disorder and cerebal palsy with baseline spastic hemiparesis presentes with status epilepticus, did have low levels of his seizure meds Seizure, CT head without any new changes, loaded with Keppra, valproic acid and continues with these IV concern for possible aspiration on vancomycin and zosyn
--- NOTE | 2016-10-03 11:39 | CRITICAL CARE PROGRESS NOTE ---
DATE: 10/03/2016 SUBJECTIVE: This is a 46-year-old gentleman with a history of cerebral palsy and seizure disorder, who presented to the hospital after having a seizure as an outpatient. He had 3 seizures and received a total of 8 mg of Ativan prior to coming to the intensive care unit. He was loaded with Keppra and has continued on the Keppra as well as Depakote. He normally takes Depakote and Lamictal as well. 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 Yesterday, he was obtunded to drowsy after his 8 mg of Ativan, but awakened overnight. He has not had any further seizures since being in the intensive care unit. Today, when I interviewed and examined him, he is awake and alert. He is a bit slow to speak and respond. His believes that he is almost back to his baseline from a mental status standpoint. He denies cough or shortness of breath. PHYSICAL EXAMINATION: VITAL SIGNS: Maximum temperature 36.9, heart rate 55-66, respiratory rate 17-26, blood pressure 95-126/60s-70s, and oxygen saturation 96% on room air. 24-hour fluid balance is positive 2.2 liters. GENERAL: He is awake. He speaks a little bit slowly, but is oriented to person and place. LUNGS: Have decreased breath sounds throughout with very faint rales in the right base. No rhonchi or wheezes. HEART: Regular rate and rhythm. ABDOMEN: Deferred due to his seated position. EXTREMITIES: Show the right upper and lower extremity to be smaller and somewhat atrophied compared to the left. NEUROLOGIC: He has 4/5 strength in the right and left extremity distally and proximally. He has some spasm of the left upper extremity. His pupils are round and reactive. He has a right facial droop. LABORATORY DATA: White blood cell count 8.33, hemoglobin 12.3, hematocrit 36.7, and platelets 242. Sodium 145, potassium 3.8, chloride 111, CO2 of 30, BUN 10, creatinine 0.92, calcium 7.3, and phosphorus 2.1. AST 9 and alkaline phosphatase 33. Total protein 6.1 and albumin 2.8. DIAGNOSTIC STUDIES: Portable chest x-ray from this morning was reviewed and shows a right lower lobe infiltrate. This could be infectious or due to atelectasis. MEDICATIONS AND INFUSIONS: Acetaminophen, Keppra, Ativan p.r.n., morphine p.r.n., Zofran, Protonix, Zosyn day #2, Depakote 750 mg IV b.i.d., and vancomycin. IMPRESSION: 1. Status epilepticus. No seizures since being admitted to the intensive care unit yesterday. Doing well and possibly back to his baseline mental status. 2. History of seizure disorder and cerebral palsy. 3. Right lower lobe infiltrate, atelectasis versus aspiration pneumonia. He is on Zosyn and vancomycin. He has leukocytosis which could be from seizure. No cough, no sputum. 4. Mild hypophosphatemia. PLAN: NEUROLOGIC: Dr. Meadows has suggested resuming Lamictal 200 mg b.i.d. now that he can take p.o. The Depakote has been increased and can be changed to the oral form and the Keppra stopped. Continue to watch for any further seizures. I have ordered physical therapy and occupational therapy. PULMONARY: Provide incentive spirometry and consider repeating the chest x-ray tomorrow. He does have mild leukocytosis, but is not coughing up any sputum and is not hypoxemic. CARDIOVASCULAR: No acute or active issues. EKG from this morning was reviewed. GASTROINTESTINAL: Diet has been advanced. Discontinue Protonix. HEMATOLOGY: He has a leukocytosis, continue to follow. INFECTIOUS DISEASE: Discontinue vancomycin. Keep Zosyn for now, but I would have a low threshold to discontinue it if his chest x-ray improves with incentive spirometry. RENAL: No acute issues. Discontinue IV fluids. HEME: Begin subcutaneous heparin for DVT prophylaxis. He is stable for transfer to the floor. Please call me with any questions or concerns. ABEL
[2016-10-03] MEDS ORDERED: ENOXAPARIN 40 MG/0.4 ML SYR SQ ONE (11:45)
[2016-10-03] MEDS: ACETAMINOPHEN 325 MG TAB PO PRN ×2 (15:39→19:47)
[2016-10-03] MEDS: DIVALPROEX SODIUM 250 MG DELAY REL TAB PO SCH (20:40)
[2016-10-03] MEDS: DOCUSATE SODIUM 100 MG CAP PO SCH (20:41)
[2016-10-04] MEDS: PIPERACILL/TAZOBAC IV 4.5 GM in DEXTROSE 5% 100ML IV SCH ×2 (04:01→13:15)
[2016-10-04 06:19] LABS: BASO % 0.7 %; BASO ABS # 0.05 K/uL (0-0.2); COMPLETE YES; EOS % 4.2 %; HEMATOCRIT 37.4 % (42-52); IG% 0.1 %; LYMPH % 43.8 %; LYMPH ABS # 3.11 K/uL (1.2-3.4); MEAN CELL VOLUME 92.3 fL (80-100); MEAN CORPUSCULAR HEMOGLOBIN 31.4 pg (25-34); MEAN PLATELET VOLUME 9.1 fL (7.4-10.4); MONO % 8.6 %; NEUT % 42.6 %; PLATELET COUNT 252 K/uL (130-400); RED BLOOD COUNT 4.05 M/uL (4.7-6.1)
[2016-10-04 07:12] LABS: BUN/CREATININE RATIO 9.1 (10-20); CALCIUM 8.3 mg/dl (8.5-10.1); CREATININE 0.98 mg/dl (0.60-1.40); MAGNESIUM 2.3 mg/dl (1.8-2.4); POTASSIUM 3.7 mmol/L (3.5-5.1)
[2016-10-04 07:32] VITALS: BP 124/82; PULSE 52; TEMP 36.4; O2SAT 97
[2016-10-04 08:00] VITALS: O2SAT 97
--- NOTE | 2016-10-04 08:39 | Neurology Progress Notes ---
Neurology Progress Note Date of Service October 04, 2016. Subjective Patient has had no further seizures. He is doing well and has no pain or headaches. He is not dizzy and he doesn't feel confused. Objective Date Time Temp Pulse Resp B/P Pulse Ox O2 Delivery O2 Flow Rate FiO2 10/04/16 07:32 36.4 52 18 124/82 97 Room Air 10/03/16 23:59 Room Air 10/03/16 23:32 36.4 53 16 110/65 91 Room Air 10/03/16 21:05 Room Air 10/03/16 15:53 Room Air 10/03/16 15:15 36.4 67 18 122/70 95 Room Air 10/03/16 13:17 91 Room Air 2.0 10/03/16 10:43 36.5 60 17 132/87 91 Room Air 10/03/16 10:33 36.9 55 17 96 Last 24 Hours Test 10/03/16 09:42 10/03/16 11:49 10/03/16 16:40 10/03/16 20:00 Vancomycin Level Trough 16.2 mcg/ml Bedside Glucose 82 mg/dl 87 mg/dl 87 mg/dl Test 10/04/16 05:15 10/04/16 07:05 White Blood Count 7.10 K/uL Red Blood Count 4.05 M/uL Hemoglobin 12.7 g/dL Hematocrit 37.4 % Mean Corpuscular Volume 92.3 fL Mean Corpuscular Hemoglobin 31.4 pg Mean Corpuscular Hemoglobin Concent 34.0 g/dl Platelet Count 252 K/uL Mean Platelet Volume 9.1 fL Neutrophils (%) (Auto) 42.6 % Lymphocytes (%) (Auto) 43.8 % Monocytes (%) (Auto) 8.6 % Eosinophils (%) (Auto) 4.2 % Basophils (%) (Auto) 0.7 % Neutrophils # (Auto) 3.02 K/uL Lymphocytes # (Auto) 3.11 K/uL Monocytes # (Auto) 0.61 K/uL Eosinophils # (Auto) 0.30 K/uL Basophils # (Auto) 0.05 K/uL RDW Standard Deviation 45.2 fL RDW Coefficient of Variation 13.4 % Immature Granulocyte % (Auto) 0.1 % Immature Granulocyte # (Auto) 0.01 K/uL Sodium Level 144 mmol/L Potassium Level 3.7 mmol/L Chloride Level 109 mmol/L Carbon Dioxide Level 27 mmol/L Anion Gap 8.0 mmol/L Blood Urea Nitrogen 9 mg/dl Creatinine 0.98 mg/dl Est Creatinine Clear Calc Drug Dose 107.5 ml/min Estimated GFR () 106.7 Estimated GFR (Non- 92.1 BUN/Creatinine Ratio 9.1 Random Glucose 77 mg/dl Calcium Level 8.3 mg/dl Magnesium Level 2.3 mg/dl Total Bilirubin 0.4 mg/dl Direct Bilirubin 0.1 mg/dl Aspartate Amino Transf (AST/SGOT) 9 U/L Alanine Aminotransferase (ALT/SGPT) 13 U/L Alkaline Phosphatase 36 U/L Total Protein 7.0 gm/dl Albumin 3.3 gm/dl Bedside Glucose 106 mg/dl Exam: He is awake and alert. Speech is without obvious aphasia or dysarthria. He is hesitant at times which is normal for him. Mentation and thought processes seem intact. He has a mild facial droop on the right and chronic right spastic hemiparesis with strength being 4-4+/5 diffusely on the right and 5/5 diffusely in the left. The right side is smaller than the left physically. There is mild right eccentric tropia and some nystagmus with horizontal gaze. Gait has a spastic right hemiparetic walk with leg extension/circumduction and arm flexion. Reflexes are 2/4 in the arms bilaterally and 1/4 in the legs. There is no clonus. Toes are upgoing to plantar stimulation on the right. Plantar downgoing on the left. Current Inpatient Medications Medications (Trade) Dose Ordered Sig/[facility] Route Start Time Stop Time Status Last Admin Dose Admin Morphine Sulfate 2 mg 2 mg Q2H PRN IV 10/02/16 05:00 10/16/16 04:59 Lorazepam/Syringe (Ativan Inj/ Syringe) 1 ml @ 0.5 mls/min Q5M PRN IV 10/02/16 05:00 11/01/16 04:59 Ondansetron HCl (Zofran Inj) 4 mg Q6H PRN IV 10/02/16 05:00 11/01/16 04:59 Lorazepam (Ativan Inj) 1 mg Q5M PRN IV 10/02/16 05:15 11/01/16 05:14 Piperacillin Sod/ Tazobactam Sod 1 ea 1 ea UD PRN N/A 10/02/16 07:00 11/01/16 06:59 Piperacillin Sod/ Tazobactam Sod/ Dextrose (Zosyn Iv/D5 100ml) 120 ml @ 30 mls/hr Q8H IV 10/02/16 12:00 10/09/16 11:59 10/04/16 04:01 30 MLS/HR Acetaminophen (Tylenol Tab) 650 mg Q4H PRN PO 10/03/16 10:30 11/02/16 10:29 10/03/16 19:47 650 MG Lamotrigine (Lamictal Tab) 200 mg BID PO 10/03/16 21:00 11/02/16 20:59 10/03/16 20:41 200 MG Divalproex Sodium (Depakote Delay Rel Tab) 750 mg BID PO 10/03/16 21:00 11/02/16 20:59 10/03/16 20:40 750 MG Enoxaparin Sodium (Lovenox Inj) 40 mg QAM SQ 10/04/16 09:00 11/03/16 08:59 Docusate Sodium (coLACE CAP) 100 mg BID PO 10/03/16 21:00 11/02/16 20:59 10/03/16 20:41 100 MG Impression 1. 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 He was well controlled on medication but his Depakote level was somewhat low at 47 on admission. The patient admits to some noncompliance. He is controlled since admission on valproic acid 750 mg twice a day and add Lamictal 20 mg twice a day. Keppra was discontinued due to side effects. 2. 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 This is stable/chronic Plan 1. Continue Depakote 750 mg twice a day. 2. Continue lamotrigine 200 mg twice daily. 3. Keep off Keppra 4. Increase activity as able. 5. Hold on driving until we see him back in clinic in the next 1-2 weeks. 6. No work for one week. I will see him back as an outpatient in the next 1-2 weeks for follow-up. I spoke with Dr. Almanzar regarding this case including diagnoses and treatment options.
[2016-10-04] MEDS: DIVALPROEX SODIUM 250 MG DELAY REL TAB PO SCH (08:42)
[2016-10-04] MEDS: DOCUSATE SODIUM 100 MG CAP PO SCH (08:43)
[2016-10-04] MEDS ORDERED: ENOXAPARIN 40 MG/0.4 ML SYR SQ SCH (09:00)
[2016-10-04] MEDS ORDERED: DPKSR/250 PO (14:11)
[2016-10-04] MEDS ORDERED: AMOX875T PO (14:11)
--- NOTE | 2016-10-04 14:17 | Discharge Instructions ---
Discharge Instructions Date of Service October 04, 2016. Admission Reason for Admission: Seizures Discharge Discharge Diagnosis / Problem: Seizures; Suspected right-sided pneumonia Discharge Goals Goal(s): Improve disease control, Learn about illness, Diagnostic testing, Therapeutic intervention Activity Recommendations Activity Limitations: as noted below 1. No driving or operating heavy machinery. 2. No taking a bath UNSUPERVISED. 3. No swimming. . Instructions / Follow-Up Instructions / Follow-Up From Dr. Almanzar - 1. Seizures - * please INCREASE your depakote to 750mg twice a day * new prescription sent to [facility]; start this TONIGHT * continue your lamictal as previous * follow-up with Dr. Browne's office as scheduled 2. Suspected right-sided pneumonia - * take augmentin for 7 days; start this TONIGHT * prescription sent to [facility] * augmentin can often cause diarrhea * would recommend eating yogurt daily while on the antibiotic to prevent diarrhea 3. See your family doctor (Dr. Levin) later this week 4. Return to [facility] [address] if you have recurrent seizures, fever over 100.5 degrees, etc. Current Hospital Diet Patient's current hospital diet: Regular Diet Discharge Diet Recommended Diet: Regular Diet Procedures Procedures Performed: 1. CAT scan of the brain 2. EEG (seizure) test Pending Studies Studies pending at discharge: no Medical Emergencies . Who to Call and When: Medical Emergencies: If at any time you feel your situation is an emergency, please call 911 immediately. . Non-Emergent Contact Non-Emergency issues call your: Primary Care Provider Call Non-Emergent contact if: temperature is above 100.5, you have any medication questions . . "Provider Documentation" section prepared by Neo Almanzar. . VTE Core Measure Inpt VTE Proph given/why not?: SCD's
[2016-10-04 14:40] VITALS: BP 124/82; PULSE 52; TEMP 36.4; O2SAT 97
--- NOTE | 2016-10-04 20:58 | Discharge Summary ---
Discharge Summary Date of Service October 04, 2016. Discharge Summary Admission Date: October 02, 2016 at 05:01 Discharge Date: October 04, 2016 Discharge Disposition: Home Principal Diagnosis: status epilepticus Problems/Secondary Diagnoses: 1. known seizure disorder 2. cerebral palsy 3. acute hypoxic respiratory failure 2nd to probable aspiration pneumonia 4. RLL aspiration pneumonia Immunizations: Have You Had Influenza Vaccine: No History of Tetanus Vaccine?: No History of Pneumococcal: No History of Hepatitis B Vaccine: No Procedures: 1. EEG 2. CT head: Findings: The paranasal sinuses and mastoid air cells are clear. Unchanged infarct of the left cerebral hemisphere involving the left middle cerebral arterial distribution. A subtle chronic midline shift to the left. 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 No evidence for acute intracranial hemorrhage. No major change in the prior study. Impression: Chronic change. No acute process. Consultations: 1. neurology - Vini Meadows MD 2. critical care - Jesenia Good MD 3. PT, OT Medication Reconciliation New Medications: Amoxicillin & Pot Clavulanate (Augmentin 875-125 mg) 1 Tab Tab 875 MG PO BID for 7 Days, #14 TAB 0 Refills begin evening of 10/04/16 Changed Medications: Divalproex Sodium (Depakote Extended-Release) 250 Mg Tabcr 750 MG PO BID, #180 TAB 2 Refills (Changed from: 500 MG; Refills: ) note increased dose Continued Medications: Lamotrigine (Lamictal) 200 Mg Tab 200 MG PO BID Discharge Exam Physical Exam: General Appearance: no apparent distress ENT: pharynx normal Neck: no JVD Respiratory/Chest: no respiratory distress, no accessory muscle use, + rales (scant, RLL) Cardiovascular: regular rate, rhythm, no gallop, no murmur, normal peripheral pulses Abdomen / GI: normal bowel sounds, non tender, soft, no organomegaly Extremities: no pedal edema, + pertinent finding (left leg with normal muscle bulk; atrophy noted of right leg) Neurologic/Psychiatric: alert, normal mood/affect, oriented x 3, + motor weakness (RUE/RLE with spasticity), + abnormal reflexes (hyper-reflexic on right arm/leg), + pertinent finding (right foot drop ) Skin: no rash Hospital Course HISTORY OF PRESENT ILLNESS: The patient is a 46-year-old male with past medical history including cerebral palsy and seizure disorder, with previous last known seizure 5 years ago, who presents to the emergency department with a sudden onset seizure that occurred just prior to arrival. EMS reports that upon their arrival the patient was not actively seizing but he was postictal. He then began actively seizing again and was given 2 mg of Ativan prior to arrival to the ED. He seized again upon arrival to the emergency department and received additional Ativan at that time. For the remainder of the emergency department stay the patient remained sedated and had no further seizures. He was placed on 100% mask, and did initially have significant accessory muscle use, but did settle down to more regular breathing and was converted to nasal cannula 2 L of oxygen prior to transfer to the ICU. HOSPITAL COURSE: The patient was initially admitted to the ICU due to his respiratory status and his excessive sedation (from his post-ictal state as well as copious benzodiazepines needed for his status epilepticus). He was loaded with IV depakote shortly after admission after it was found that his depakote level was subtherapeutic at 47. He was also treated for his acute hypoxic respiratory failure likely from a RLL aspiration pneumonia. For the remainder of his stay he had no further seizures. He was seen in consult by neurology, Dr. Meadows, who recommended that at discharge his depakote be increased to 750mg BID. He will also continue on his lamictal twice daily. PT & OT were consulted and both felt he was appropriate to be discharged to home with his . Lastly, he will complete a course of augmentin twice daily for 7 additional days after discharge for his aspiration pneumonia. Follow-up with neurology has been arranged for after discharge; he will need repeat LFTs as well as a depakote level at that time. Total Time Spent: Greater than 30 minutes This includes examination of the patient, discharge planning, medication reconciliation, and communication with other providers. Discharge Instructions Please refer to the electronic Patient Visit Report (Discharge Instructions) for additional information. Follow-Up 1. See [facility] - October 14 2. See PCP, Dr. Levin, within 3-5 days Additional Copies To [facility]; Ger Levin, D.O.Int.Med.; Tila Browne M.D.
== END 2016-10-04 16:06 | disposition home or self-care (01) | DRG 100 ==
LOC: ENRESERVDT → ENRESERVTM → EDBD 02:32 → C.EDA 02:37 → C.MSICU 05:01 → C.MS2W 10-03 09:29
PROVIDERS: ADMIT Hospitalist; ATTEND Internal Medicine
DX: G40.101 Localization-related (focal) (partial) symptomatic epilepsy and epileptic syndromes with simple partial seizures, not intractable, with status epilepticus (principal); J69.0 Pneumonitis due to inhalation of food and vomit; J96.01 Acute respiratory failure with hypoxia; G80.2 Spastic hemiplegic cerebral palsy; G93.40 Encephalopathy, unspecified; Z91.14 Patient's other noncompliance with medication regimen

== ENCOUNTER → 2017-01-25 | Outpatient (CLI) | payer OTHER ==
[~2017-01-25] MED LIST changes: +AMOX875T PO
== END | disposition home or self-care (01) ==
LOC: C.LAB1850 12:08
PROVIDERS: ATTEND Physician Assistant
DX: G40.209 Localization-related (focal) (partial) symptomatic epilepsy and epileptic syndromes with complex partial seizures, not intractable, without status epilepticus (principal)

== ENCOUNTER → 2017-06-22 | Outpatient (CLI) | payer OTHER ==
[~2017-06-22] MED LIST changes: +LAMO200T35 PO; -LAMO200T38 PO
[2017-06-22 13:15] LABS: BASO ABS # 0.07 K/uL (0-0.2); EOS ABS # 0.14 K/uL (0-0.5); HEMATOCRIT 40.9 % (42-52); HEMOGLOBIN 14.4 g/dL (14.0-18.0); IG# 0.02 K/uL (0.00-0.02); LYMPH % 43.2 %; LYMPH ABS # 3.09 K/uL (1.2-3.4); MEAN CELL VOLUME 91.7 fL (80-100); MEAN CORPUSCULAR HEMOGLOBIN 32.3 pg (25-34); MEAN CORPUSCULAR HGB CONC 35.2 g/dl (32-36); MEAN PLATELET VOLUME 9.3 fL (7.4-10.4); MONO % 11.3 %; MONO ABS # 0.81 K/uL (0.11-0.59); NEUT % 42.2 %; NEUT ABS # 3.02 K/uL (1.4-6.5); PLATELET COUNT 278 K/uL (130-400); RED CELL DISTRIBUTION WIDTH SD 43.5 fL (36.4-46.3); WHITE BLOOD COUNT 7.15 K/uL (4.8-10.8)
[2017-06-22 13:52] LABS: ALBUMIN 3.4 gm/dl (3.4-5.0); ALT/SGPT 18 U/L (12-78); AST/SGOT 14 U/L (15-37); BLOOD UREA NITROGEN 11 mg/dl (7-18); CALCIUM 8.5 mg/dl (8.5-10.1); CARBON DIOXIDE 26 mmol/L (21-32); CREATININE 1.03 mg/dl (0.60-1.40); GLUCOSE 83 mg/dl (70-99); SODIUM 138 mmol/L (136-145)
[2017-06-22 13:54] LABS: ALKALINE PHOSPHATASE 38 U/L (45-117); TOTAL PROTEIN 7.4 gm/dl (6.4-8.2)
== END | disposition home or self-care (01) ==
LOC: C.LAB1850 12:05
PROVIDERS: ATTEND Psychiatry & Neurology Neurology
DX: G40.209 Localization-related (focal) (partial) symptomatic epilepsy and epileptic syndromes with complex partial seizures, not intractable, without status epilepticus (principal)

== ENCOUNTER 2025-03-18 02:16 | Inpatient (IN) ==
[2025-03-18] MEDS: ONDANSETRON INJ 2 MG/ML 2 ML VIAL IV STA (02:37)
[2025-03-18] MEDS: ONDANSETRON INJ 2 MG/ML 2 ML VIAL ONE (02:47)
[2025-03-18 02:51] LABS: Hematocrit (blood only) 40.9 % (42.0-52.0); Hemoglobin 14.2 g/dl (14.0-18.0); Immature Granulocytes # (auto) 0.06 K/uL (0.01-0.20); Immature Granulocytes % (auto) 0.7 %; Mean Corpuscular Hemoglobin 32.3 pg (25.0-34.0); Mean Corpuscular Volume 93.0 fL (80.0-100.0); Platelet Count 239 K/uL (130-400); RDW Standard Deviation 43.4 fL (36.4-46.3); Red Blood Count 4.40 M/uL (4.70-6.10); White Blood Count 8.92 K/ul (4.8-10.8)
[2025-03-18 03:08] LABS: Alanine Aminotransferase 10.0 U/L (7-52); Albumin Globulin Ratio 1.0 (0.9-2); Albumin Level 3.6 gm/dl (3.4-5.0); Alkaline Phosphatase 37.0 U/L (34-104); Anion Gap 6.0 (3-11); Bilirubin,Total 0.3 mg/dl (0.2-1.0); Blood Urea Nitrogen 14.0 mg/dl (6-23); Calcium 8.5 mg/dl (8.6-10.3); Carbon Dioxide 28.0 mmol/L (21-32); Chloride 103.0 mmol/L (98-107); Creatinine Clr Calc Pharmacy 92.2 ml/min; Globulin 3.7 gm/dl (2.5-4.0); Glucose 101.0 mg/dl (70-99(Fasting)); Potassium 4.7 mmol/L (3.5-5.1); Sodium 137.0 mmol/L (136-145); Total Protein 7.3 gm/dl (6.0-8.3)
[2025-03-18 03:34] LABS: Appearance Urine Clear (Clear); Bacteria Urine Automated None Seen (None Seen); Cast Urine Automated 0-2 /lpf (0-2); Epithelial Cell Urine Auto 0-2 /hpf (0-2); Glucose Urine UA Negative (Negative); WBC Urine Automated 0-5 /hpf (0-5)
--- NOTE | 2025-03-18 03:37 | Emergency Department Note ---
Impression & Plan Seizure Admit to the [facility] ED Provider Note NAME: NOAH RODRIGUEZ AGE: 55 SEX: Male INFORMANT: Patient ED PROVIDER(S): Mamie Rodrigues DO CHIEF COMPLAINT: seizure PLAN: Disposition: Admit to the [facility] MEDICAL DECISION MAKING: This is a 55-year-old male patient with a history of seizures who was last known well around 10:30 PM. he was found around 1 AM on the floor by family members to be having a seizure. EMS was called. Prior to their arrival, he vomited but continued to seize. EMS was unable to secure an IV but administered IM Versed which did stop the seizure. On physical exam, the patient has cephalhematoma noted to the left forehead where he hit his head. Patient's explains that he has been compliant with his anticonvulsants. Laboratory studies reveal a Depakote level of 59 which is therapeutic. He has no leukocytosis or anemia. Renal function and glucose were normal. Urinalysis revealed 1+ blood with 6-10 red blood cells. Patient had an emergent CT scan of the head and cervical spine because of the trauma noted to the left side of his head. This was negative for any acute traumatic injuries. Chest x-ray was unremarkable. Patient had no further seizure activity while in the emergency department. He appeared to be postictal and slowly returned to a mental status that seemed normal but lethargic. [facility] care. I kept the patient's abreast of the situation. Lamictal level was sent out for reference testing. Care/management discussed with: imaging center manager and [facility] Triage Nursing notes: reviewed and agree With them. Vital Signs: reviewed and unremarkable Additional History obtained from: the patient's who arrived at the bedside Chronic Medical/Social Conditions affecting care: seizures-routinely takes Depakote and Lamictal Differential Diagnosis: intracranial trauma, intracranial hemorrhage,medication noncompliance, status epilepticus, electrolyte abnormality Diagnostics, independently interpreted by me: ECG: normal sinus rhythm at a rate of [address] segment elevation or signs of ischemia. Cardiac Monitoring: Normal sinus rhythm at a rate of 79 Imaging studies: portable chest x-ray: No acute pulmonary filtrate or consolidation as per my independent interpretation CT scan of the brain: as per [facility]mb[facility] CT scan of the cervical spine: As per [facility] HPI: 55 year old Male arrives for evaluation of seizure. Patient has a known history of seizures for which he takes Lamictal and Depakote. His explains that his last seizure was approximately 4-5 years ago. She spoke with him around 10:30 PM by phone or text. He asked her to call or text when she arrived home from work and he would open the door to their home. Approximately 2 hours later, she arrived at home and tried to contact him but was unsuccessful. She spoke with her daughter who woke up and went out to find the patient laying facedown on the ground having a grand mal seizure. EMS was called and the patient continued to seize and had an episode of vomiting. PAST MEDICAL HISTORY: See Below, PAST SURGICAL HISTORY: See Below, SOCIAL HISTORY: See Below, HOME MEDICATIONS: See list ALLERGIES: None VITALS: See Below PHYSICAL EXAMINATION: HEENT: Head - normocephalic with a cephalohematoma noted over the left eyebrow. Pupils are equal, round, and reactive to light. Extraocular eye muscles are intact and sclera are anicteric. Nose - moist nasal mucosa without discharge. Mouth - moist buccal mucosa. Oropharynx is nonerythematous and there is no tonsillar exudate or edema noted. Neck: Supple; no JVD, nuchal rigidity, cervical lymphadenopathy Heart: Regular rate and rhythm. There is a normal S1 and S2 with no murmurs, clicks, or gallops appreciated. Lungs: Clear to auscultation bilaterally with no wheezes, rales, or rhonchi. Abdomen: Soft, completely nontender, nondistended, with good bowel sounds. There are no palpable pulsatile masses or hepatosplenomegaly. There is no guarding, rigidity, or rebound noted. Extremities: No evidence of cyanosis, clubbing, or edema. There are easily palpable peripheral pulses. Neuro: The patient was semiresponsive and appeared postictal. He was slowly starting to follow commands. Emergency Department treatment: Supplemental oxygen, satellite project site monitor, IV Zofran, IV Keppra Emergency Department course: The patient was evaluated in room B-1. A complete history and physical was performed. Order was placed for continuous cardiac monitoring. The patient was in a normal sinus rhythm at a rate of 79. Twelve- lead EKG was obtained as described above. Patient was catheterized for urine specimen. Saturations were marginal and he remained on supplemental oxygen from EMS. Patient was gagging slightly and was given a dose of IV Zofran to prevent vomiting. Patient's arrived at the bedside and was able to give more of a history. Portable chest x-ray was performed. Patient went for CT scan of the brain and cervical spine. We confirmed the patient's doses of Lamictal and Depakote. The explains that the patient faithfully takes his medications. The patient will be bolused with IV Keppra. I discussed the case with the [facility] Hospitalist and they will evaluate for further inpatient care. Past Med/Surg History Problem List (Updated 03/18/25 @ 20:14 by Mamie Rodrigues DO) Seizure (Acute) Action tremor Hemiplegic cerebral palsy Seizure (Acute) Unresponsive episode Left leg DVT Pain and swelling of left lower leg Low hemoglobin Hypothyroidism Encounter for health maintenance examination Left knee pain Headache Spondylolisthesis of lumbar region (Acute 01/03/14) Anterolisthesis Intermittent low back pain Signs and symptoms involving cognition Chronic ischemic left MCA stroke (Acute) Elbow pain, left Left lateral epicondylitis Medical History Essential tremor Complex partial seizure Cerebral palsy Other instability, right foot Surgical History History of ankle surgery S/P laminectomy Cervical and Lumbar S/P eye surgery Family History Mother Diabetes Myocardial infarction Brother Diabetes Denies family history of Ovarian cancer Prostate cancer Breast cancer Colorectal cancer Social History Smoking Status: Never smoker Tobacco Type: Smokeless Tobacco (Dip or Chew) Second Hand Exposure: No; Do You Dip or Chew Tobacco: Yes; Tobacco Cessation Education Requested by Patient: No Hx Alcohol Use: No Hx Substance Use: No Preferred Language: Bengali Communication Ability: Effective Visual Impairment: No Limitations Hearing Ability: Normal Outsewer Required: No Beliefs That Will Affect Care: None marital status: Current Living Situation: Spouse current occupational status: employed current occupation: [employer] Other Information That Helps Us Care for You: No Feels Safe at Home: Yes Safety Concerns: Feels Safe At This Time Dental Care, Regularly: No Physical Activity Frequency: Does not Exercise Seatbelt Use: always Sunscreen Use: No Assistive Devices: Glasses Allergies Allergies Allergy/AdvReac Type Severity Reaction Status Date / Time No Known Drug Allergies Allergy Unknown Verified 03/18/25 04:13 Home Meds Previous Rx's Medication Instructions Recorded levothyroxine 125 mcg tablet 125 mcg PO DAILY #90 tabs 09/14/24 divalproex 250 mg tablet,extended 500 mg (2 x 250 mg) PO BID 30 days 01/08/25 release 24 hr #120 tabs lamotrigine 200 mg tablet 200 mg PO BID #60 tabs 01/08/25 propranolol 80 mg capsule,24 80 mg PO DAILY #30 caps 02/18/25 hr,extended release Results & Data (ED) Vital Signs Vital Signs - 24 hr 03/18/25 02:24 03/18/25 02:25 03/18/25 02:27 Temperature Temperature Source Pulse Rate 73 90 Pulse Rate [Apical] Pulse Rhythm [Apical] Pulse Strength [Apical] Respiratory Rate 22 Respiratory Effort / Characteristics Respiratory Depth Respiratory Pattern Blood Pressure 117/93 Blood Pressure [Right Arm] Blood Pressure Mean 101 Blood Pressure Mean [Right Arm] Blood Pressure Position [Right Arm] Pulse Oximetry 97 99 Oxygen Delivery Method Non-rebreather Non-rebreather Oxygen Flow Rate 17 15 Sepsis Recent Fever Within 48 Hours No Sepsis New/Unexplained Change in Mental Status No Sepsis Action Taken by Nursing No Action Required 03/18/25 02:40 03/18/25 02:57 03/18/25 03:15 Temperature 36.9 C Temperature Source Oral Pulse Rate Pulse Rate [Apical] 87 79 Pulse Rhythm [Apical] Regular Pulse Strength [Apical] Respiratory Rate 20 24 Respiratory Effort / Characteristics Respiratory Depth Deep Respiratory Pattern Blood Pressure Blood Pressure [Right Arm] 113/84 120/69 Blood Pressure Mean Blood Pressure Mean [Right Arm] 93 86 Blood Pressure Position [Right Arm] Semi-fowlers Pulse Oximetry 99 99 95 Oxygen Delivery Method Non-rebreather Oxymask Room Air Oxygen Flow Rate 4 Sepsis Recent Fever Within 48 Hours Sepsis New/Unexplained Change in Mental Status Sepsis Action Taken by Nursing 03/18/25 03:43 03/18/25 04:01 03/18/25 04:29 Temperature 36.7 C Temperature Source Oral Pulse Rate Pulse Rate [Apical] 77 77 82 Pulse Rhythm [Apical] Regular Regular Pulse Strength [Apical] Normal Respiratory Rate 20 22 20 Respiratory Effort / Characteristics Non-Labored Spontaneous Non-Labored Spontaneous Non-Labored Respiratory Depth Normal Deep Normal Respiratory Pattern Regular Regular Blood Pressure Blood Pressure [Right Arm] 140/89 130/78 Blood Pressure Mean Blood Pressure Mean [Right Arm] 106 95 Blood Pressure Position [Right Arm] Semi-fowlers Semi-fowlers Lying Pulse Oximetry 96 96 96 Oxygen Delivery Method Room Air Room Air Room Air Oxygen Flow Rate Sepsis Recent Fever Within 48 Hours Sepsis New/Unexplained Change in Mental Status Sepsis Action Taken by Nursing 03/18/25 05:30 Temperature Temperature Source Pulse Rate Pulse Rate [Apical] 90 Pulse Rhythm [Apical] Regular Pulse Strength [Apical] Normal Respiratory Rate 20 Respiratory Effort / Characteristics Non-Labored Spontaneous Respiratory Depth Normal Respiratory Pattern Regular Blood Pressure Blood Pressure [Right Arm] 132/87 Blood Pressure Mean Blood Pressure Mean [Right Arm] 102 Blood Pressure Position [Right Arm] Lying Pulse Oximetry 95 Oxygen Delivery Method Room Air Oxygen Flow Rate Sepsis Recent Fever Within 48 Hours Sepsis New/Unexplained Change in Mental Status Sepsis Action Taken by Nursing Laboratory Data 03/18/25 02:35 03/18/25 02:35 Lab Results 03/18/25 03/18/25 03/18/25 Range/Units 02:35 02:38 02:42 WBC 8.92 (4.8-10.8) K/ul RBC 4.40 L (4.70-6.10) M/uL Hgb 14.2 (14.0-18.0) g/dl POC Hgb 14.3 (14.0-18.0) g/dl Hct 40.9 L (42.0-52.0) % POC Hct 42 (42-52) % MCV 93.0 (80.0-100.0) fL MCH 32.3 (25.0-34.0) pg MCHC 34.7 (32.0-36.0) g/dL RDW Std Deviation 43.4 (36.4-46.3) fL RDW Coeff of Stephen 12.6 (11.5-14.5) % Plt Count 239 (130-400) K/uL MPV 8.8 L (9.4-12.4) fL Immature Gran % (Auto) 0.7 % Neut % (Auto) 72.7 % Lymph % (Auto) 18.4 % [place] % (Auto) 5.7 % Eos % (Auto) 1.5 % Baso % (Auto) 1.0 % Neut # (Auto) 6.49 (1.40-6.50) K/uL Lymph # (Auto) 1.64 (1.20-3.40) K/uL [place] # (Auto) 0.51 (0.11-0.59) K/uL Eos # (Auto) 0.13 (0.00-0.50) K/uL Baso # (Auto) 0.09 (0.00-0.20) K/uL Immature Gran # (Auto) 0.06 (0.01-0.20) K/uL POC Sodium 139 (135-144) mmol/L Sodium 137 (136-145) mmol/L POC Potassium 4.8 (3.3-5.0) mmol/L Potassium 4.7 (3.5-5.1) mmol/L POC Chloride 102 (101-112) mmol/L Chloride 103 (98-107) mmol/L Carbon Dioxide 28 (21-32) mmol/L POC Total CO2 29 (24-31) mmol/L Anion Gap 6 (3-11) POC Anion Gap 15.0 L (16-25) mmol/L POC BUN 15 (7-18) mg/dl BUN 14 (6-23) mg/dl Creatinine 1.17 (0.6-1.4) mg/dl POC Creatinine 1.2 (0.6-1.3) mg/dl Est Cr Clr Drug Dosing 92.2 ml/min eGFR 73.62 BUN/Creatinine Ratio 12.0 (10-20) Glucose 101 H (70-99(Fasting)) mg/dl POC Glucose 101 H (70-99) mg/dl POC Glucose (other) 101 H (70-99) mg/dl Calcium 8.5 L (8.6-10.3) mg/dl POC Ioniz Calcium Shawn 1.17 (1.12-1.32) mmol/l Total Bilirubin 0.3 (0.2-1.0) mg/dl AST 12 L (13-39) U/L ALT 10 (7-52) U/L Alkaline Phosphatase 37 (34-104) U/L Total Protein 7.3 (6.0-8.3) gm/dl Albumin 3.6 (3.4-5.0) gm/dl Globulin 3.7 (2.5-4.0) gm/dl Albumin/Globulin Ratio 1.0 (0.9-2) Urine Color Urine Appearance (Clear) Urine pH (4.5-7.5) Ur Specific [place] (1.000-1.030) Urine Protein (Negative) Urine Glucose (UA) (Negative) Urine Ketones (Negative) Urine Blood (Negative) Urine Nitrite (Negative) Urine Bilirubin (Negative) Urine Urobilinogen (Negative) Ur Leukocyte Esterase (Negative) Urine WBC (Auto) (0-5) /hpf Urine RBC (Auto) (0-2) /hpf U Hyaline Cast (Auto) (0-2) /lpf U Epithel Cells (Auto) (0-2) /hpf Urine Bacteria (Auto) (None Seen) Urine Comment Urine Opiates Screen (Neg) Ur Methadone, Qual (Neg) Urine Fentanyl Screen (Neg) Urine Barbiturates (Neg) Valproic Acid 59 (50-100) mcg/ml Ur Phencyclidine (PCP) (Neg) U Amphetamin/Meth Scrn (Neg) MDMA (Ecstasy) Screen (Neg) U Benzodiazepines Scrn (Neg) Ur Cocaine Metabolite (Neg) U Marijuana (THC) Screen (Neg) 03/18/25 Range/Units 03:21 WBC (4.8-10.8) K/ul RBC (4.70-6.10) M/uL Hgb (14.0-18.0) g/dl POC Hgb (14.0-18.0) g/dl Hct (42.0-52.0) % POC Hct (42-52) % MCV (80.0-100.0) fL MCH (25.0-34.0) pg MCHC (32.0-36.0) g/dL RDW Std Deviation (36.4-46.3) fL RDW Coeff of Stephen (11.5-14.5) % Plt Count (130-400) K/uL MPV (9.4-12.4) fL Immature Gran % (Auto) % Neut % (Auto) % Lymph % (Auto) % [place] % (Auto) % Eos % (Auto) % Baso % (Auto) % Neut # (Auto) (1.40-6.50) K/uL Lymph # (Auto) (1.20-3.40) K/uL [place] # (Auto) (0.11-0.59) K/uL Eos # (Auto) (0.00-0.50) K/uL Baso # (Auto) (0.00-0.20) K/uL Immature Gran # (Auto) (0.01-0.20) K/uL POC Sodium (135-144) mmol/L Sodium (136-145) mmol/L POC Potassium (3.3-5.0) mmol/L Potassium (3.5-5.1) mmol/L POC Chloride (101-112) mmol/L Chloride (98-107) mmol/L Carbon Dioxide (21-32) mmol/L POC Total CO2 (24-31) mmol/L Anion Gap (3-11) POC Anion Gap (16-25) mmol/L POC BUN (7-18) mg/dl BUN (6-23) mg/dl Creatinine (0.6-1.4) mg/dl POC Creatinine (0.6-1.3) mg/dl Est Cr Clr Drug Dosing ml/min eGFR BUN/Creatinine Ratio (10-20) Glucose (70-99(Fasting)) mg/dl POC Glucose (70-99) mg/dl POC Glucose (other) (70-99) mg/dl Calcium (8.6-10.3) mg/dl POC Ioniz Calcium Shawn (1.12-1.32) mmol/l Total Bilirubin (0.2-1.0) mg/dl AST (13-39) U/L ALT (7-52) U/L Alkaline Phosphatase (34-104) U/L Total Protein (6.0-8.3) gm/dl Albumin (3.4-5.0) gm/dl Globulin (2.5-4.0) gm/dl Albumin/Globulin Ratio (0.9-2) Urine Color Yellow Urine Appearance Clear (Clear) Urine pH 5.5 (4.5-7.5) Ur Specific [place] 1.027 (1.000-1.030) Urine Protein Negative (Negative) Urine Glucose (UA) Negative (Negative) Urine Ketones Negative (Negative) Urine Blood 1+ H (Negative) Urine Nitrite Negative (Negative) Urine Bilirubin Negative (Negative) Urine Urobilinogen Negative (Negative) Ur Leukocyte Esterase Negative (Negative) Urine WBC (Auto) 0-5 (0-5) /hpf Urine RBC (Auto) 6-10 H (0-2) /hpf U Hyaline Cast (Auto) 0-2 (0-2) /lpf U Epithel Cells (Auto) 0-2 (0-2) /hpf Urine Bacteria (Auto) None Seen (None Seen) Urine Comment Urine Opiates Screen Neg (Neg) Ur Methadone, Qual Neg (Neg) Urine Fentanyl Screen Neg (Neg) Urine Barbiturates Neg (Neg) Valproic Acid (50-100) mcg/ml Ur Phencyclidine (PCP) Neg (Neg) U Amphetamin/Meth Scrn Neg (Neg) MDMA (Ecstasy) Screen Neg (Neg) U Benzodiazepines Scrn Pos H (Neg) Ur Cocaine Metabolite Neg (Neg) U Marijuana (THC) Screen Neg (Neg) Administered Medications Acetaminophen (Acetaminophen 500 Mg Tab) 1,000 mg PO Q8H PRN PRN Reason: Pain or Fever Stop: 04/17/25 17:48 Last Admin: 03/18/25 18:06 Dose: 1,000 mg Documented By: OS Divalproex Sodium (Divalproex Extended Release 500 Mg Tab) 500 mg PO BID [facility] [place] Stop: 04/17/25 10:46 Last Admin: 03/18/25 20:03 Dose: 500 mg Documented By: Admin: 03/18/25 11:25 Dose: 500 mg Documented By: CHEPE(2) Lactated Ringer's (Lr) 1,000 mls @ 125 mls/hr IV .Q8H [facility] Stop: 03/19/25 02:46 Last Admin: 03/18/25 20:02 Dose: 125 mls/hr Documented By: Infusion: 03/18/25 19:51 Dose: Infused Documented By: Admin: 03/18/25 11:25 Dose: 125 mls/hr Documented By: CHEPE(2) Lamotrigine (Lamotrigine 25 Mg Tab) 25 mg PO BID [facility] [place]; Protocol Stop: 04/17/25 20:59 Last Admin: 03/18/25 20:02 Dose: 25 mg Documented By: CHEPE Lamotrigine (Lamotrigine 100 Mg Tab) 200 mg PO BID [facility] [place]; Protocol Stop: 04/17/25 20:59 Last Admin: 03/18/25 20:03 Dose: 200 mg Documented By: CHEPE Levothyroxine Sodium (Levothyroxine Sodium 125 Mcg Tablet) 125 mcg PO DAILYBB ELIESER Stop: 04/17/25 10:46 Last Admin: 03/18/25 11:25 Dose: 125 mcg Documented By: CHEPE(2) Propranolol HCl (Propranolol Hcl La 80 Mg Capcr) 80 mg PO DAILY ELIESER Stop: 04/17/25 10:46 Last Admin: 03/18/25 11:25 Dose: 80 mg Documented By: CHEPE(2) Discontinued Medications Gadobutrol (Gadobutrol 65ml Vial) 12 ml IV ONCE ONE Stop: 03/18/25 12:36 Last Admin: 03/18/25 12:35 Dose: 12 ml Documented By: ANGUS Lamotrigine (Lamotrigine 100 Mg Tab) 200 mg PO BID [facility] [place]; Protocol Stop: 04/17/25 10:46 Last Admin: 03/18/25 11:25 Dose: 200 mg Documented By: CHEPE(2) Levetiracetam (Levetiracetam 500 Mg/5 Ml Vial) 4,500 mg IV NOW STA Stop: 03/18/25 03:22 Last Admin: 03/18/25 03:35 Dose: 4,500 mg Documented By: RICHARD Ondansetron HCl (Ondansetron Inj 2 Mg/Ml 2 Ml Vial) 4 mg IV NOW STA Stop: 03/18/25 02:34 Last Admin: 03/18/25 02:37 Dose: 4 mg Documented By: HAIM Ondansetron HCl (Ondansetron Inj 2 Mg/Ml 2 Ml Vial) Confirm Administered Dose 4 mg .ROUTE .STK-MED ONE Stop: 03/18/25 02:35 Last Admin: 03/18/25 02:47 Dose: Not Given Documented By: HAIM Discharge Plan Visit Data Chief Complaint: Seizure Stated Complaint: SEIZURE ED Provider: Mamie Rodrigues Discharge Problem: Seizure Patient Disposition: Admitted As Inpatient Condition: Serious Discharge Instructions Interventions: ED Discharge Assessment Last Done: 03/18/25 08:58
--- NOTE | 2025-03-18 04:00 | CT Scan Report ---
EXAM: CT cervical spine wo con CLINICAL HISTORY: HEAD TRAUMA. TECHNIQUE: CT scan of the cervical spine was performed without the administration of intravenous contrast. Contiguous axial images were obtained from the skull base to the upper thoracic spine. Coronal and sagittal reformatted images were also reviewed. One of the following dose reduction techniques was utilized for this exam: automated exposure control, adjustment of the mA and/or kV according to patient size, and use of iterative reconstruction. COMPARISON: 05/28/2019 CT. FINDINGS: Vertebrae: Straightening of the cervical curvature is noted. Diffuse osteopenia is present. Status post C6-C7 discectomy with interbody spacer placement. Findings are stable. There is no evidence of acute fracture or dislocation. The cortical and trabecular bone patterns are normal. There are no signs of lytic or sclerotic lesions. There is normal configuration of the posterior elements. Intervertebral Discs: Diffuse degenerative changes of the cervical spine are denoted by marginal osteophytes and narrowed disc spaces. Sclerosis of the opposing vertebral endplates of C6-C7 is seen. C3-C4 and C4-C5 show diffuse disc bulges indenting the ventral subarachnoid spaces. Facet Joints: The facet joints are normal without evidence of dislocation, subluxation, or significant degenerative changes. Prevertebral Soft Tissues: The prevertebral soft tissues are normal in thickness without evidence of mass or abnormal fluid collection. Additional Findings: Bilateral apical pleural thickening is present. IMPRESSION: 1. There is no evidence of acute fracture or dislocation. 2. Stable prior surgical intervention with intact prosthesis. 3. Stable diffuse degenerative changes of the cervical spine. Electronically signed by Ermias Wu 03-18-2025 04:00 AM
--- NOTE | 2025-03-18 04:03 | XRay Report ---
EXAM: XR chest 1V portable CLINICAL HISTORY: EVAL FOR ASPIRATION. TECHNIQUE: An X-ray image of the chest is obtained in AP projection. COMPARISON: 05/28/2019 CT. FINDINGS: Elevated right dome of the diaphragm. There are prominent hilar shadows and bronchovascular markings in both lung henning, denoting congestive changes. There is no evidence of consolidation, collapse, or focal opacities. No pulmonary nodules are identified. There is no evidence of pleural effusion or pleural thickening. Heart and Mediastinum: The cardiac shadow is enlarged, denoting cardiomegaly. There is no mediastinal widening or masses. No hilar or mediastinal lymphadenopathy. Bony Thorax: The bony thorax appears intact without fractures or deformities. Screw fixation is seen at the right shoulder region. Soft Tissues: The soft tissues overlying the chest wall are unremarkable. IMPRESSION: 1. No acute cardiopulmonary abnormalities are identified. 2. Cardiomegaly with vascular congestion. 3. No interval changes. Electronically signed by Ermias Wu 03-18-2025 04:02 AM
--- NOTE | 2025-03-18 04:08 | CT Scan Report ---
EXAM: CT head/brain wo con CLINICAL HISTORY: Seizure; left forehead trauma. TECHNIQUE: Axial non-contrast CT scan of the brain was performed from the skull base to the high parietal region. One of the following dose reduction techniques was utilized for this exam: Automated exposure control, adjustment of the mA and/or kV according to patient size, use of iterative reconstruction. COMPARISON: 02/19/2022 CT. FINDINGS: Motion artifacts are decreasing the diagnostic sensitivity of the examination. Brain Parenchyma: There is redemonstration of a fairly large area of left parietotemporal chronic infarct with ex vacuo dilatation of the left lateral ventricle and temporal horn. No definite acute intracranial hemorrhage is seen in the visualized brain parenchyma. Motion artifacts are limiting evaluation. Ventricular System: Ex vacuo dilatation of the left lateral ventricle. Bilateral choroid plexus xanthogranulomas. Stable. Subarachnoid Spaces: Sulcal atrophy is present in the left parietal region. No evidence of subarachnoid hemorrhage or extra-axial fluid collections. Cerebellum and Brainstem: Redemonstration of giant cisterna magna/arachnoid cyst. No masses, lesions, or areas of abnormal density are identified. Orbits: There is normal appearance of the globes, optic nerves, and extraocular muscles. No evidence of orbital masses or abnormal density. Sinuses: Clear paranasal sinuses. No evidence of sinusitis or mucosal thickening. Mastoid Air Cells: Clear mastoid air cells. No evidence of mastoiditis. Skull and soft tissue: There is mild extracalvarial soft tissue swelling with a small hematoma in the left frontal region. No definite underlying calvarial fracture is seen. IMPRESSION: 1. Mild extracalvarial soft tissue swelling with a small hematoma in the left frontal region. No definite underlying calvarial fracture is seen. 2. Redemonstration of a fairly large area of left parietotemporal chronic infarct with ex vacuo dilatation of the left lateral ventricle and temporal horn. 3. No definite acute intracranial hemorrhage is seen in the visualized brain parenchyma. Motion artifacts are limiting evaluation. 4. Redemonstration of giant cisterna magna/arachnoid cyst. Electronically signed by Ermias Wu 03-18-2025 04:07 AM
[2025-03-18 04:51] LABS: Amphetamines+Metham, Urine Neg (Neg); MDMA (Ecstacy), Urine Neg (Neg); Marijuana, Urine Neg (Neg)
--- NOTE | 2025-03-18 05:12 | History & Physical Report ---
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 Concerns for noncompliance with meds. Evaluation is not suggestive of infection, and no gross electrolyte abnormalities. Imaging of chest, C spine, and head without acute findings, does show chronic known conditions. Admission for unresponsive episode, suspect seizure. #Unresponsive episode/Seizure/CP Prior history of seizures, on divalproex and lamotrigine for. ? concern for medication noncompliance. 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 Last seizure ~ fall 2021, otherwise has been stable per report. Prior hospitalization September 2016 for SE with resp failure/RLL PNA. Follows with neurology, most recent visit being in 2023. No signs of infection at time of admission. Breakthrough seizure 2/2 ? failure of proper medication usage. - CBC + CMP grossly WNL - trend as appropriate - UDS (+) benzos - VA level WNL, pending lamotrigine level - CXR + C spine CT no acute findings - Head CT small extracalvarial soft tissue swelling with a small hematoma L frontal, redemonstration of L parietotemporal chronic infarct and giant cisterna magna/arachnoid cyst, no acute hemorrhage - Seizure precautions - Continue home meds - levels have been sent and are pending -Ativan 4mg IV x 1 dose as needed for seizure activity - MRI pending - Consider EEG - defer to neuro - Neuro consulted - appreciate input + recs #Essential tremor- Propranolol - continue #Hypothyroidism- Levothyroxine - continue Dispo: Admit, PCU VTE Prophylaxis: SCDs Admission and Anticipated Discharge Date Admission Date: 03/18/2025 History of Present Illness Chief Complaint: unresponsive episode Primary Care Provider: Sade Laura MD 55 y/o m PMHx seizures, chronic L MCA CVA, DVT, hypothyroidism 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 Concerns for noncompliance with meds. ED eval reveals CBC without leukocytosis, stable H/H; CMP grossly WNL with exception glucose 101, AST 12; Ca 8.5; UA negative for infection; UDS (+) benzos; valproic acid level 59; lamotrigine level pending; CXR cardiomegaly with vascular congestion, no acute findings; C spine CT no acute fx/dislocation; head CT small hematoma L frontal region, redemonstration of L parietotemporal chronic infarct with ex vacu dilatation of L lateral ventricle and temporal horn, no acute hemorrhage, redemonstration of giant cisterna magna/arachnoid cyst; EKG NSR at 84 bpm.; provided with zofran 4mg IV + keppra 4,500 mg IV in ED. Patient is unable to provide history. is at bedside. 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 She came home from work around 01:00 and couldn't get anybody to open the door for her. Finally her daughter opened the door and they found the patient on the floor seizing. Uncertain how long he was having a seizure. He has been post-ictal since arrival but states that he is starting to come around. Overall well controlled seizures. Last seizure 4-5 years ago. Was following with Neurology - last seen in August 2023 No additional complaints. No illness prior to this event. Please see Dr. Tran's attestation for adjustments/additions to treatment plan. Allergies Allergy/AdvReac Type Severity Reaction Status Date / Time No Known Drug Allergies Allergy Unknown Verified 03/18/25 04:13 Home Medications Medication Instructions Recorded Confirmed Type levothyroxine 125 mcg tablet 125 mcg PO DAILY #90 tabs 09/14/24 03/18/25 Rx divalproex 250 mg tablet,extended 500 mg (2 x 250 mg) PO BID 30 days 01/08/25 03/18/25 Rx release 24 hr #120 tabs lamotrigine 200 mg tablet 200 mg PO BID #60 tabs 01/08/25 03/18/25 Rx propranolol 80 mg capsule,24 80 mg PO DAILY #30 caps 02/18/25 03/18/25 Rx hr,extended release Past Med/Surg History Problem List Unresponsive episode Left leg DVT Pain and swelling of left lower leg Low hemoglobin Hypothyroidism Encounter for health maintenance examination Left knee pain Headache Spondylolisthesis of lumbar region (Acute 01/03/14) Anterolisthesis Intermittent low back pain Signs and symptoms involving cognition Chronic ischemic left MCA stroke (Acute) Elbow pain, left Left lateral epicondylitis Medical History Essential tremor Complex partial seizure Cerebral palsy Other instability, right foot Surgical History History of ankle surgery S/P laminectomy Cervical and Lumbar S/P eye surgery Family History Mother Diabetes Myocardial infarction Brother Diabetes Denies family history of Ovarian cancer Prostate cancer Breast cancer Colorectal cancer Social History Smoking Status: Unknown if ever smoked Tobacco Type: Smokeless Tobacco (Dip or Chew) Second Hand Exposure: No; Do You Dip or Chew Tobacco: Yes; Hx Alcohol Use: No Hx Substance Use: No Preferred Language: Czech Communication Ability: Effective Visual Impairment: No Limitations Hearing Ability: Normal 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 Does not wish to be fully examined at this time. Skin: warm, dry, intact, no rashes or lesions HEENT: NC/AT, external ear normal to inspection and nontender, nares patent, moist mucus membranes, dentition intact, no oropharyngeal lesions, neck supple, trachea midline, no LAD, no thyromegaly, no JVD Heart: +S1/S2, regular, no m/r/g Lungs: equal air entry bilaterally, no rales/rhonchi/wheezes Abd: +BS, soft, NT/ND, no masses/organomegaly/ascites Ext: warm, 2+ pulses in UE/LE bilaterally, no clubbing/cyanosis or edema Neuro: nonfocal, patient moving all extremities but unable to test strength as patient does not wish to be fully examined, answers to name, follows some commands. Does have right sided motor deficit at baseline from prior CVA Results & Data Results & Data Vital Signs (Past 12 Hours) Vital Signs Temp Pulse Pulse Resp BP BP Pulse Ox 03/18/25 04:29 82 20 96 03/18/25 04:01 36.7 C 77 22 130/78 96 03/18/25 03:43 77 20 140/89 96 03/18/25 03:15 79 24 120/69 95 03/18/25 02:57 36.9 C 99 03/18/25 02:40 87 20 113/84 99 03/18/25 02:27 90 03/18/25 02:25 73 22 117/93 99 03/18/25 02:24 97 O2 Del Method O2 Flow Rate 03/18/25 04:29 Room Air 03/18/25 04:01 Room Air 03/18/25 03:43 Room Air 03/18/25 03:15 Room Air 03/18/25 02:57 Oxymask 4 03/18/25 02:40 Non-rebreather 03/18/25 02:27 03/18/25 02:25 Non-rebreather 15 03/18/25 02:24 Non-rebreather 17 Laboratory Results 03/18/25 03/18/25 03/18/25 03:21 02:42 02:38 WBC RBC Hgb POC Hgb 14.3 Hct POC Hct 42 MCV MCH MCHC RDW Std Deviation RDW Coeff of Stephen Plt Count MPV Immature Gran % (Auto) Neut % (Auto) Lymph % (Auto) Carver % (Auto) Eos % (Auto) Baso % (Auto) Neut # (Auto) Lymph # (Auto) Carver # (Auto) Eos # (Auto) Baso # (Auto) Immature Gran # (Auto) POC Sodium 139 Sodium POC Potassium 4.8 Potassium POC Chloride 102 Chloride Carbon Dioxide POC Total CO2 29 Anion Gap POC Anion Gap 15.0 L POC BUN 15 BUN Creatinine POC Creatinine 1.2 Est Cr Clr Drug Dosing eGFR BUN/Creatinine Ratio Glucose POC Glucose 101 H POC Glucose (other) 101 H Calcium POC Ioniz Calcium Shawn 1.17 Total Bilirubin AST ALT Alkaline Phosphatase Total Protein Albumin Globulin Albumin/Globulin Ratio Urine Color Yellow Urine Appearance Clear Urine pH 5.5 Ur Specific Berg[place] 1.027 Urine Protein Negative Urine Glucose (UA) Negative Urine Ketones Negative Urine Blood 1+ H Urine Nitrite Negative Urine Bilirubin Negative Urine Urobilinogen Negative Ur Leukocyte Esterase Negative Urine WBC (Auto) 0-5 Urine RBC (Auto) 6-10 H U Hyaline Cast (Auto) 0-2 U Epithel Cells (Auto) 0-2 Urine Bacteria (Auto) None Seen Urine Comment Urine Opiates Screen Neg Ur Methadone, Qual Neg Urine Fentanyl Screen Neg Urine Barbiturates Neg Valproic Acid Ur Phencyclidine (PCP) Neg U Amphetamin/Meth Scrn Neg MDMA (Ecstasy) Screen Neg U Benzodiazepines Scrn Pos H Ur Cocaine Metabolite Neg U Marijuana (THC) Screen Neg 03/18/25 02:35 WBC 8.92 RBC 4.40 L Hgb 14.2 POC Hgb Hct 40.9 L POC Hct MCV 93.0 MCH 32.3 MCHC 34.7 RDW Std Deviation 43.4 RDW Coeff of Stephen 12.6 Plt Count 239 MPV 8.8 L Immature Gran % (Auto) 0.7 Neut % (Auto) 72.7 Lymph % (Auto) 18.4 Carver % (Auto) 5.7 Eos % (Auto) 1.5 Baso % (Auto) 1.0 Neut # (Auto) 6.49 Lymph # (Auto) 1.64 Carver # (Auto) 0.51 Eos # (Auto) 0.13 Baso # (Auto) 0.09 Immature Gran # (Auto) 0.06 POC Sodium Sodium 137 POC Potassium Potassium 4.7 POC Chloride Chloride 103 Carbon Dioxide 28 POC Total CO2 Anion Gap 6 POC Anion Gap POC BUN BUN 14 Creatinine 1.17 POC Creatinine Est Cr Clr Drug Dosing 92.2 eGFR 73.62 BUN/Creatinine Ratio 12.0 Glucose 101 H POC Glucose POC Glucose (other) Calcium 8.5 L POC Ioniz Calcium Shawn Total Bilirubin 0.3 AST 12 L ALT 10 Alkaline Phosphatase 37 Total Protein 7.3 Albumin 3.6 Globulin 3.7 Albumin/Globulin Ratio 1.0 Urine Color Urine Appearance Urine pH Ur Specific [place] Urine Protein Urine Glucose (UA) Urine Ketones Urine Blood Urine Nitrite Urine Bilirubin Urine Urobilinogen Ur Leukocyte Esterase Urine WBC (Auto) Urine RBC (Auto) U Hyaline Cast (Auto) U Epithel Cells (Auto) Urine Bacteria (Auto) Urine Comment Urine Opiates Screen Ur Methadone, Qual Urine Fentanyl Screen Urine Barbiturates Valproic Acid 59 Ur Phencyclidine (PCP) U Amphetamin/Meth Scrn MDMA (Ecstasy) Screen U Benzodiazepines Scrn Ur Cocaine Metabolite U Marijuana (THC) Screen Diagnostic Findings Cervical Spine CT 03/18/25 02:31 EXAM: CT cervical spine wo con CLINICAL HISTORY: HEAD TRAUMA. TECHNIQUE: CT scan of the cervical spine was performed without the administration of intravenous contrast. Contiguous axial images were obtained from the skull base to the upper thoracic spine. Coronal and sagittal reformatted images were also reviewed. One of the following dose reduction techniques was utilized for this exam: automated exposure control, adjustment of the mA and/or kV according to patient size, and use of iterative reconstruction. COMPARISON: 05/28/2019 CT. FINDINGS: Vertebrae: Straightening of the cervical curvature is noted. Diffuse osteopenia is present. Status post C6-C7 discectomy with interbody spacer placement. Findings are stable. There is no evidence of acute fracture or dislocation. The cortical and trabecular bone patterns are normal. There are no signs of lytic or sclerotic lesions. There is normal configuration of the posterior elements. Intervertebral Discs: Diffuse degenerative changes of the cervical spine are denoted by marginal osteophytes and narrowed disc spaces. Sclerosis of the opposing vertebral endplates of C6-C7 is seen. C3-C4 and C4-C5 show diffuse disc bulges indenting the ventral subarachnoid spaces. Facet Joints: The facet joints are normal without evidence of dislocation, subluxation, or significant degenerative changes. Prevertebral Soft Tissues: The prevertebral soft tissues are normal in thickness without evidence of mass or abnormal fluid collection. Additional Findings: Bilateral apical pleural thickening is present. IMPRESSION: 1. There is no evidence of acute fracture or dislocation. 2. Stable prior surgical intervention with intact prosthesis. 3. Stable diffuse degenerative changes of the cervical spine. Electronically signed by Ermias Wu 03-18-2025 04:[address] 03/18/25 02:31 EXAM: CT head/brain wo con CLINICAL HISTORY: Seizure; left forehead trauma. TECHNIQUE: Axial non-contrast CT scan of the brain was performed from the skull base to the high parietal region. One of the following dose reduction techniques was utilized for this exam: Automated exposure control, adjustment of the mA and/or kV according to patient size, use of iterative reconstruction. COMPARISON: 02/19/2022 CT. FINDINGS: Motion artifacts are decreasing the diagnostic sensitivity of the examination. Brain Parenchyma: There is redemonstration of a fairly large area of left parietotemporal chronic infarct with ex vacuo dilatation of the left lateral ventricle and temporal horn. No definite acute intracranial hemorrhage is seen in the visualized brain parenchyma. Motion artifacts are limiting evaluation. Ventricular System: Ex vacuo dilatation of the left lateral ventricle. Bilateral choroid plexus xanthogranulomas. Stable. Subarachnoid Spaces: Sulcal atrophy is present in the left parietal region. No evidence of subarachnoid hemorrhage or extra-axial fluid collections. Cerebellum and Brainstem: Redemonstration of giant cisterna magna/arachnoid cyst. No masses, lesions, or areas of abnormal density are identified. Orbits: There is normal appearance of the globes, optic nerves, and extraocular muscles. No evidence of orbital masses or abnormal density. Sinuses: Clear paranasal sinuses. No evidence of sinusitis or mucosal thickening. Mastoid Air Cells: Clear mastoid air cells. No evidence of mastoiditis. Skull and soft tissue: There is mild extracalvarial soft tissue swelling with a small hematoma in the left frontal region. No definite underlying calvarial fracture is seen. IMPRESSION: 1. Mild extracalvarial soft tissue swelling with a small hematoma in the left frontal region. No definite underlying calvarial fracture is seen. 2. Redemonstration of a fairly large area of left parietotemporal chronic infarct with ex vacuo dilatation of the left lateral ventricle and temporal horn. 3. No definite acute intracranial hemorrhage is seen in the visualized brain parenchyma. Motion artifacts are limiting evaluation. 4. Redemonstration of giant cisterna magna/arachnoid cyst. Electronically signed by Ermias Wu 03-18-2025 04:07 AM Chest X-Ray 03/18/25 02:36 EXAM: XR chest 1V portable CLINICAL HISTORY: EVAL FOR ASPIRATION. TECHNIQUE: An X-ray image of the chest is obtained in AP projection. COMPARISON: 05/28/2019 CT. FINDINGS: Elevated right dome of the diaphragm. There are prominent hilar shadows and bronchovascular markings in both lung henning, denoting congestive changes. There is no evidence of consolidation, collapse, or focal opacities. No pulmonary nodules are identified. There is no evidence of pleural effusion or pleural thickening. Heart and Mediastinum: The cardiac shadow is enlarged, denoting cardiomegaly. There is no mediastinal widening or masses. No hilar or mediastinal lymphadenopathy. Bony Thorax: The bony thorax appears intact without fractures or deformities. Screw fixation is seen at the right shoulder region. Soft Tissues: The soft tissues overlying the chest wall are unremarkable. IMPRESSION: 1. No acute cardiopulmonary abnormalities are identified. 2. Cardiomegaly with vascular congestion. 3. No interval changes. Electronically signed by Ermias Wu 03-18-2025 04:02 AM Medications Administered Zofran 4mg IV Keppra 4,500 mg IV ECG Additional Comments: NSR 84bpm, MN 202, QRS 96, QT/QTc 372/439, PRT 59/57/44 Code Status & VTE Plan Code Status Full Supervising Physician Co-Signing Physician Notes patient seen and examined, chart reviewed, case discussed with MELONY Mejia I agree with assessment plan as document above. In brief, patient is a 45-year-old male with history of prior stroke with right-sided motor deficit at baseline, complex partial seizures on Divalproex and Lamictal presenting with unwitnessed seizure event of unknown duration. history obtained from patient's at bedside as patient is still somewhat postictal. She reports that overall patient's seizures are very well-controlled. Last witnessed seizure 4 to 5 years ago. He was following with neurology last seen in August 2023. Found this evening seizing, duration unknown. No other changes to his health preceding this event. states he is compliant with his medications. No illness. No other medication changes. No substance use. On exam patient is somnolent, arousable. Answers questions and follows some commands but is not overly compliant with exam. Skinno rashes or lesions HEENTmoist mucous membranes, neck supple, small hematoma on frontal bone. Patient will not allow me to examine his pupils Heart+ S1, S2, regular, no murmur/rub/gallops LungsCTA anteriorly Abdomensoft, nontender, nondistended Extremitieswarm, well-perfused Neurosomnolent, arousable, answers to name and follows some commands. Does not participate in other components of neuroexam Labs and images reviewed Assessment/[id number] male with history of prior stroke, known seizure disorder previously well-controlled presenting with unwitnessed seizure of unknown duration. Admit to PCU Maintain seizure precautions Check MRI Continue antiepileptic drugs, levels pending Ativan as needed Appreciate neurology input regarding possible medication changes #Essential tremor Continue propranolol #Hypothyroidism Continue Synthroid PG Care Time/CCT Total # of Minutes Spent Total Time Spent with Patient: Total time spent is greater than 50% in coordination of care (as documented) at patient's floor/unit and/or counseling patient: Coding Level of Care Code 48103 INT INP/OBS CARE MIN Diagnoses Unresponsive episode R40.4 Complex partial seizure G40.209
--- NOTE | 2025-03-18 06:47 | Electrocardiogram Report ---
Test Reason : Blood Pressure : */* mmHG Vent. Rate : 84 BPM Atrial Rate : 84 BPM P-R Int : 202 ms QRS Dur : 96 ms QT Int : 372 ms P-R-T Axes : 59 57 44 degrees QTcB Int : 439 ms Normal sinus rhythm Normal ECG When compared with ECG of 19-Feb-2022 00:32, No significant change was found Confirmed by Ez Martinez ([id number]) on 03/18/2025 6:47:48 AM Referred By: REFERRED SELF Confirmed By: Ez Martinez
[2025-03-18 07:28] VITALS: RESP 18
[2025-03-18] MEDS ORDERED: ONDANSETRON INJ 2 MG/ML 2 ML VIAL IV PRN (10:47)
[2025-03-18] MEDS: PROPRANOLOL HCL LA 80 MG CAPCR PO SCH (11:25)
[2025-03-18] MEDS: LEVOTHYROXINE SODIUM 125 MCG TABLET PO SCH (11:25)
[2025-03-18] MEDS: lamoTRIgine 100 MG TAB PO SCH ×2 (11:25→20:03)
[2025-03-18] MEDS: LACTATED RINGER'S 1,000 ML IV SCH (11:25)
[2025-03-18] MEDS: DIVALPROEX EXTENDED RELEASE 500 MG TAB PO SCH (11:25)
[2025-03-18] MEDS: GADOBUTROL 65ML VIAL IV ONE (12:35)
--- NOTE | 2025-03-18 13:29 | Magnetic Resonance Report ---
MR brain seizure wo/w con HISTORY: 55 years-old Male breakthrough seizure COMPARISON: Head CT of same day, brain MRI 04/06/2015 TECHNIQUE: Multiplanar multisequence MRI of the brain was obtained with and without IV contrast FINDINGS: No restricted diffusion to suggest an acute or subacute infarct. Study is motion degraded. Large area of left MCA territorial encephalomalacia and gliosis redemonstrated along with wallerian degeneratio n of the left midbrain. Atrophic cerebellum also again seen. No acute intracranial hemorrhage, midlin e shift, abnormal extra-axial collection, hydrocephalus or intra-axial mass. Mild T2/FLAIR hyperinten se foci noted throughout the white matter suggestive of chronic microvascular ischemic disease. The v isualized medial temporal lobes are within normal limits. No acute seizure focus identified. Cerebral venous sinuses and major arterial flow voids appear patent. Unremarkable skull and orbits. N o abnormal enhancement. IMPRESSION: 1. No acute intracranial abnormality, specifically there is no evidence of an acute infarct. 2. Large area of encephalomalacia and gliosis within the left MCA distribution redemonstrated. 3. No abnormal enhancement. ACT 112: Negative or not required by law. The above report was generated using voice recognition software. It may contain grammatical, syntax o r spelling errors. Electronically signed by: Ortega Becerra M.D. 03/18/2025 1:28 PM
--- NOTE | 2025-03-18 16:23 | Neurology Consultation ---
Date of Consultation March 18, 2025 Assessment & Plan (1) Seizure: (2) Hemiplegic cerebral palsy: (3) Action tremor: Plan 55-year-old male with a history of right hemiplegic cerebral palsy with evidence of chronic cystic encephalomalacia involving the left middle cerebral artery territory. He has a mild chronic right hemiparesis, ambulates independently, has decreased facility for the right hand, he is able to speak although his speech is slowed. He has no aphasia. His neurological condition is complicated by seizure disorder, has been following with Dr. Browne in the neurology clinic, his last seizure occurred in 2021. His seizures are typically characterized by focal onset motor symptoms involving the right upper limb, followed by generalization, generalized tonic-clonic seizure, loss of consciousness. He presented to the emergency department last night after a probable recent breakthrough seizure, no obvious cause for this event, has been compliant with his Depakote and Lamictal, his spouse manages his medications. Depakote level within therapeutic range, lamotrigine level pending, will take at least another 7 days for results. His levels were appropriate and within therapeutic range this past May, no dosage adjustments have been made. He also has a coarse action tremor, left greater than right hand, likely related to long-term Depakote use. There does not appear to be an obvious explanation for his recent breakthrough seizure, no recent illness, infection, or use of an antibiotic or other medication that may interact with his antiseizure medication regimen. He has been compliant with his medications as well. Because he has a coarse tremor likely related to Depakote, I would recommend increasing his dosage of lamotrigine at this time. Would recommend increasing the dosage to 225 mg twice daily. Continue with Depakote 500 mg twice daily. I see that he has prescribed propranolol for tremor. He may continue with this medication. Going forward, however, if his tremor continues to escalate and interferes with activities, may need to consider tapering off Depakote in favor of an alternative antiseizure medication. Could consider a combination of lamotrigine and Keppra or possibly lamotrigine and topiramate. He may follow-up with Dr. Browne or one of our BEN's in neurology clinic in 2 to 3 weeks after discharge. Please call with any questions. History of Present Illness Reason for Consultation: Seizure Requesting Physician: Roberto Attending Physician: Tee Valdez DO History of Present Illness The patient is a 55-year-old male with a history of right hemiplegic cerebral palsy, he has a chronic relatively large left MCA infarct and mild to moderate residual right hemiparesis, no aphasia, chronic impaired facility of the right hand, mildly hemiparetic gait pattern, ambulates without brace, cane or walker, he is employed, able to drive, . He has a history of seizure disorder and follows with Dr. Browne, last seen in our clinic in August. His seizures have typically been characterized by focal onset motor symptoms, stiffening and shaking of the right upper limb, followed by secondary generalization, his last seizure episode occurred in 2021. I had seen him previously during an admission to the [facility] for seizures and 2017. EEG at that time revealed asymmetry in the background rhythm and loss of sleep spindles over the left cerebral hemisphere likely consistent with underlying encephalomalacia. He has been prescribed lamotrigine and divalproex for many years for his seizures, these medications have been considered effective and overall well-tolerated although he does have a coarse postural tremor, more so for the left hand that is likely related to long-term Depakote exposure. He presented to the emergency department last night after he was found around 1 AM by a family member, his daughter, having a generalized tonic-clonic seizure. His spouse also witnessed this event, she was present at bedside at the time of this assessment and provided additional details. He does have a vague recollection of the event which started off with right upper extremity stiffening and shaking, he is otherwise amnestic for the episode, no clear tongue bite or incontinence. His spouse typically manages his medications, he has been compliant with both Depakote and Lamictal. Denies any recent illnesses, no infections or vaccinations, has not taken any antibiotics recently. A CT of the head was negative for hemorrhage or acute process, a follow-up brain MRI was also negative for acute process, there is a large area of encephalomalacia and gliosis within the left MCA territory, I independently reviewed these images. There is a large area of cystic encephalomalacia involving the left MCA territory with associated ex-vacuo enlargement of the left lateral ventricle. Allergies Allergy/AdvReac Type Severity Reaction Status Date / Time No Known Drug Allergies Allergy Unknown Verified 03/18/25 04:13 Home Medications Medication Instructions Recorded Confirmed Type levothyroxine 125 mcg tablet 125 mcg PO DAILY #90 tabs 09/14/24 03/18/25 Rx divalproex 250 mg tablet,extended 500 mg (2 x 250 mg) PO BID 30 days 01/08/25 03/18/25 Rx release 24 hr #120 tabs lamotrigine 200 mg tablet 200 mg PO BID #60 tabs 01/08/25 03/18/25 Rx propranolol 80 mg capsule,24 80 mg PO DAILY #30 caps 02/18/25 03/18/25 Rx hr,extended release Patient History Medical History Essential tremor Complex partial seizure Cerebral palsy Other instability, right foot Surgical History History of ankle surgery S/P laminectomy Cervical and Lumbar S/P eye surgery Family History Mother Diabetes Myocardial infarction Brother Diabetes Denies family history of Ovarian cancer Prostate cancer Breast cancer Colorectal cancer Social History Smoking Status: Never smoker Tobacco Type: Smokeless Tobacco (Dip or Chew) Second Hand Exposure: No; Do You Dip or Chew Tobacco: Yes; Tobacco Cessation Education Requested by Patient: No Hx Alcohol Use: No Hx Substance Use: No Preferred Language: Italian Communication Ability: Effective Visual Impairment: No Limitations Hearing Ability: Normal Manager Advertising Required: No Beliefs That Will Affect Care: None marital status: Current Living Situation: Spouse current occupational status: employed current occupation: [employer] Other Information That Helps Us Care for You: No Feels Safe at Home: Yes Safety Concerns: Feels Safe At This Time Dental Care, Regularly: No Physical Activity Frequency: Does not Exercise Seatbelt Use: always Sunscreen Use: No Assistive Devices: Glasses Review of Systems Constitutional: no fever Eyes: no blind spots and no diplopia Ear, Nose, Mouth, Throat: no hearing loss Respiratory: no dyspnea Cardiovascular: no palpitations Gastrointestinal: no nausea and no vomiting Genitourinary: no dysuria Musculoskeletal: no myalgia Integumentary: no rash Neurologic: as per Subjective / HPI and + tremor(s) Psychiatric: no depression and no anxiety Hematologic / Lymphatic: no easy bleeding and no easy bruising Exam (Neuro) Constitutional: well developed and well nourished; no acute distress Eyes: normal visual henning by confrontation, PERRL and EOM intact bilaterally; no nystagmus Neurologic: Oriented to:: Person, Place and Time Memory: Short Term Intact and Remote Intact Attention: Span Intact and Concentration Intact Speech Fluency: Slowed; negative Dysarthria or Dysfluency Speech Aphasia: negative Aphasia Fund of Knowledge: Current Events, Past History and Vocabulary Cranial Nerves: Normal II, III, IV, , V, VII, VIII, IX, X, XI and XII Motor Strength: Hemiparesis Laterality: Right Motor Tone: Normal Lower Extremities and Normal Upper Extremities Muscle Bulk/Involuntary Movements: Action Tremor Sensation: Light Touch Intact, Pain/Temperature Intact and Proprioception Intact Coordination: Normal, Finger-Nose Abnormal Laterality: Right and Heel- Contreras Abnormal Laterality: Right; negative Limited Balance Deep Tendon Reflexes: Rt Triceps: 2+, Lt Triceps: 2+, Rt Biceps: 2+, Lt Biceps: 2+, Rt Brachioradialis: 2+, Lt Brachioradialis: 2+, Rt Patellar: 2+, Lt Patellar: 2+, Rt Ankle: 1+ and Lt Ankle: 1+ Special Tests: Babinski Present (Right) Results & Data Vital Signs (Past 12 Hours) Vital Signs Temp Pulse Pulse Pulse Resp BP BP 03/18/25 15:55 36.8 C 63 18 127/73 03/18/25 12:39 36.6 C 65 18 126/81 03/18/25 11:12 88 03/18/25 09:30 37.2 C 94 H 18 132/58 L 03/18/25 09:23 03/18/25 08:58 03/18/25 08:38 77 18 108/58 L 03/18/25 07:27 76 18 124/59 L 03/18/25 06:47 77 16 136/94 03/18/25 06:14 69 03/18/25 05:30 90 20 132/87 03/18/25 04:29 82 20 Pulse Ox O2 Del Method 03/18/25 15:55 95 Room Air 03/18/25 12:39 93 Room Air 03/18/25 11:12 03/18/25 09:30 96 Room Air 03/18/25 09:23 Nasal Cannula 03/18/25 08:58 Room Air 03/18/25 08:38 92 Room Air 03/18/25 07:27 96 Room Air 03/18/25 06:47 98 Room Air 03/18/25 06:14 03/18/25 05:30 95 Room Air 03/18/25 04:29 96 Room Air Laboratory Results WBC 8.92, hemoglobin 14.2, platelet count 239, sodium 137, potassium 4.7, creatinine 1.17, glucose 101, calcium 8.5, AST 12, ALT 10, valproic acid level 59, lamotrigine level pending. AED levels from this past May reviewed as well, valproic acid level at that time was 75, lamotrigine level 14.2. Diagnostic Findings Electrocardiogram, normal sinus rhythm, 84 bpm Coding Level of Care Code 34528 INT INP/OBS CARE 75MIN Diagnoses Seizure R56.9 Hemiplegic cerebral palsy G80.8 Action tremor G25.2 Time Spent (min) 80 Comment Total time includes patient contact, chart review, counseling, note preparation
--- NOTE | 2025-03-18 16:57 | Hospitalist Progress Note ---
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 Concerns for noncompliance with meds. Evaluation is not suggestive of infection, and no gross electrolyte abnormalities. Imaging of chest, C spine, and head without acute findings, does show chronic known conditions. Admission for unresponsive episode, suspect seizure. #Unresponsive episode/Seizure/CP Prior history of seizures, on divalproex and lamotrigine for. ? concern for medication noncompliance. 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 Last seizure ~ fall 2021, otherwise has been stable per report. Prior hospitalization September 2016 for SE with resp failure/RLL PNA. Follows with neurology, most recent visit being in 2023. No signs of infection at time of admission. Breakthrough seizure 2/2 ? failure of proper medication usage. - CBC/CMP grossly wnl - UDS (+) benzos, verification pending - Valproic acid level wnl, pending lamotrigine level - CXR + C spine CT no acute findings - Head CT small extracalvarial soft tissue swelling with a small hematoma L frontal, redemonstration of L parietotemporal chronic infarct and giant cisterna magna/arachnoid cyst, no acute hemorrhage - Seizure precautions - Continue home meds - levels have been sent and are pending - Ativan 4mg IV x 1 dose as needed for seizure activity - MRI brain: No acute abnormality or acute infarcts, chronic L. MCA encephalomalacia and gliosis re-demonstrated - Neuro consulted - recommend continuation of lamotrigine 225mg BID and Depakote 500mg BID, consider switching Depakote for Keppra/Topiramate due to worsening action tremor in hands, outpatient f/u recommended in 2-3 weeks with neurology #Essential tremor- Propranolol - continue #Hypothyroidism- Levothyroxine - continue Dispo: Admit, PCU VTE Prophylaxis: SCDs Admission and Anticipated Discharge Date Admission Date: March 18, 2025 Supervising Physician Co-Signing Physician Notes I personally examined the patient and verified all red points of history and exam, discussed case, and agree with decision making with Dr Owens Fairly groggy and tired, but notes that he is back to baseline mental status other than being very tired. Does have some urinary retention required catheterization. Vitals noted, in general he is awake and alert fatigued no acute distress. Breathing unlabored no accessory muscle use good effort. Skin without rashes pallor or icterus. Imaging noted. Acute breakthrough seizure superimposed on chronic seizure disorder. Unknown duration of seizure. Mentally back to baseline other than groggy. Appreciate neurology inputWill increase Lamictal to 225 twice daily. Cerebrovascular disease with chronic hemiplegic cerebral palsy related to prior very large MCA strokechronic regimen/supportive care acute urinary retentionlikely has some degree of underlying BPH. Catheter drainage for now. Voiding trial, hopefully tomorrow. DVT prophylaxisSCDsconsider escalating to pharmacologic if his hospital stay becomes prolonged Subjective Patient is seen resting comfortably this afternoon. He is alert and non-toxic, but is fatigued and falling asleep during our conversation. Patient is accompanied by his who relays his history. endorses that patient looks back to his normal, but with more fatigue after recent seizure. Physical Exam Physical Exam: General: patient resting and fatigued, NAD, non-toxic in appearance, answers questions appropriately. Skin: warm, dry, intact HEENT: NC/AT, anicteric sclera, conjunctiva without injection, moist mucus membranes. Heart: +S1/S2, regular, no m/r/g Lungs: equal air entry bilaterally, no rales/rhonchi/wheezes Abd: +BS, soft, NT/ND Ext: warm, no clubbing/cyanosis or edema Neuro: nonfocal, speech intact, no facial droop, moving all extremities. Results & Data Results & Data Vital Signs (Past 12 Hours) Vital Signs Temp Pulse Pulse Pulse Resp BP BP 03/18/25 16:00 64 03/18/25 16:00 03/18/25 15:55 36.8 C 63 18 127/73 03/18/25 12:39 36.6 C 65 18 126/81 03/18/25 11:12 88 03/18/25 09:30 37.2 C 94 H 18 132/58 L 03/18/25 09:23 03/18/25 08:58 03/18/25 08:38 77 18 108/58 L 03/18/25 07:27 76 18 124/59 L 03/18/25 06:47 77 16 136/94 03/18/25 06:14 69 03/18/25 05:30 90 20 132/87 Pulse Ox O2 Del Method 03/18/25 16:00 03/18/25 16:00 Room Air 03/18/25 15:55 95 Room Air 03/18/25 12:39 93 Room Air 03/18/25 11:12 03/18/25 09:30 96 Room Air 03/18/25 09:23 Nasal Cannula 03/18/25 08:58 Room Air 03/18/25 08:38 92 Room Air 03/18/25 07:27 96 Room Air 03/18/25 06:47 98 Room Air 03/18/25 06:14 03/18/25 05:30 95 Room Air Resident Activity Tracking Resident Involvement: Resident Care Provided Care Provided: Adult Hospital Medicine
[2025-03-18] MEDS: ACETAMINOPHEN 500 MG TAB PO PRN (18:06)
[2025-03-18 19:48] VITALS: O2SAT 93
[2025-03-18] MEDS: lamoTRIgine 25 MG TAB PO SCH (20:02)
[2025-03-19 06:18] LABS: Hematocrit (blood only) 36.6 % (42.0-52.0); Hemoglobin 12.6 g/dl (14.0-18.0); Immature Granulocytes # (auto) 0.03 K/uL (0.01-0.20); Immature Granulocytes % (auto) 0.3 %; Mean Corpuscular Hemoglobin 32.1 pg (25.0-34.0); Mean Corpuscular Volume 93.4 fL (80.0-100.0); Platelet Count 213 K/uL (130-400); RDW Standard Deviation 44.2 fL (36.4-46.3); Red Blood Count 3.92 M/uL (4.70-6.10); White Blood Count 8.68 K/ul (4.8-10.8)
[2025-03-19 06:37] LABS: Anion Gap 5.0 (3-11); Blood Urea Nitrogen 12.0 mg/dl (6-23); Calcium 8.3 mg/dl (8.6-10.3); Carbon Dioxide 27.0 mmol/L (21-32); Chloride 106.0 mmol/L (98-107); Creatinine Clr Calc Pharmacy 98.6 ml/min; Glucose 97.0 mg/dl (70-99(Fasting)); Potassium 3.9 mmol/L (3.5-5.1); Sodium 138.0 mmol/L (136-145)
--- NOTE | 2025-03-19 10:02 | Discharge Summary ---
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 Concerns for noncompliance with meds. ED eval reveals CBC without leukocytosis, stable H/H; CMP grossly WNL with exception glucose 101, AST 12; Ca 8.5; UA negative for infection; UDS (+) benzos; valproic acid level 59; lamotrigine level pending; CXR cardiomegaly with vascular congestion, no acute findings; C spine CT no acute fx/dislocation; head CT small hematoma L frontal region, redemonstration of L parietotemporal chronic infarct with ex vacu dilatation of L lateral ventricle and temporal horn, no acute hemorrhage, redemonstration of giant cisterna magna/arachnoid cyst; EKG NSR at 84 bpm.; provided with zofran 4mg IV + keppra 4,500 mg IV in ED. Patient is unable to provide history. is at bedside. 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 She came home from work around 01:00 and couldn't get anybody to open the door for her. Finally her daughter opened the door and they found the patient on the floor seizing. Uncertain how long he was having a seizure. He has been post-ictal since arrival but states that he is starting to come around. Overall well controlled seizures. Last seizure 4-5 years ago. Was following with Neurology - last seen in August 2023 No additional complaints. No illness prior to this event. Please see Dr. Tran's attestation for adjustments/additions to treatment plan. Admission Exam Per Admitting Provider General: patient somnolent, arousable, able to answer questions and follow commands. Does not wish to be fully examined at this time. Skin: warm, dry, intact, no rashes or lesions HEENT: NC/AT, external ear normal to inspection and nontender, nares patent, moist mucus membranes, dentition intact, no oropharyngeal lesions, neck supple, trachea midline, no LAD, no thyromegaly, no JVD Heart: +S1/S2, regular, no m/r/g Lungs: equal air entry bilaterally, no rales/rhonchi/wheezes Abd: +BS, soft, NT/ND, no masses/organomegaly/ascites Ext: warm, 2+ pulses in UE/LE bilaterally, no clubbing/cyanosis or edema Neuro: nonfocal, patient moving all extremities but unable to test strength as patient does not wish to be fully examined, answers to name, follows some commands. Does have right sided motor deficit at baseline from prior CVA Principal Diagnosis Seizure Discharge Exam General: patient resting and fatigued, NAD, non-toxic in appearance, answers questions appropriately. Skin: warm, dry, intact HEENT: NC/AT, anicteric sclera, conjunctiva without injection, moist mucus membranes. Heart: +S1/S2, regular, no m/r/g Lungs: equal air entry bilaterally, no rales/rhonchi/wheezes Abd: +BS, soft, NT/ND Ext: warm, no clubbing/cyanosis or edema Neuro: nonfocal, speech intact, no facial droop, moving all extremities. 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 Concerns for noncompliance with meds. Evaluation is not suggestive of infection, and no gross electrolyte abnormalities. Imaging of chest, C spine, and head without acute findings, does show chronic known conditions. Admission for unresponsive episode, suspect seizure. #Unresponsive episode/Seizure/CP Prior history of seizures, on divalproex and lamotrigine. 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 Last seizure ~ fall 2021, otherwise has been stable per report. Prior hospitalization September 2016 for SE with resp failure/RLL PNA. Follows with neurology, most recent visit being in 2023. No signs of infection at time of admission. Breakthrough seizure, etiology unknown. Potentially due to chronic loss of brain tissue s/p hx of stroke. - CBC/CMP grossly wnl - UDS (+) benzos, verification pending - Valproic acid level wnl, pending lamotrigine level - CXR + C spine CT no acute findings - Head CT small extracalvarial soft tissue swelling with a small hematoma L frontal, redemonstration of L parietotemporal chronic infarct and giant cisterna magna/arachnoid cyst, no acute hemorrhage - Seizure precautions - Continue home meds - levels have been sent and are pending - Ativan 4mg IV x 1 dose as needed for seizure activity - MRI brain: No acute abnormality or acute infarcts, chronic L. MCA encephalomalacia and gliosis re-demonstrated - Neuro consulted - recommend continuation of lamotrigine 225mg BID and Depakote 500mg BID, consider switching Depakote for Keppra/Topiramate due to worsening action tremor in hands, outpatient f/u recommended in 2-3 weeks with neurology #Essential tremor- Propranolol - continue #Hypothyroidism- Levothyroxine - continue Dispo: Admit, PCU VTE Prophylaxis: SCDs Total Time Total Time Spent Total Time Spent (In Minutes): <30 Discharge Plan Discharge Items Patient Disposition: Home - Self-Care Reason For Visit: SEIZURE Discharge Diagnosis: Seizure Condition on Discharge: Serious Activity: Per Instructions section Non-emergency contact: Primary Care Provider and Neurologist Call non-emergency contact if: your symptoms worsen and your pain is not controlled Follow-up/Referrals: Sade Laura MD [Primary Care Provider] - 03/28/25 10:30 am (Scheduled with Laurie Maciel PA-C) Diet: Regular Addtl Attending Provider Instructions: You were admitted to the hospital after having experienced a seizure. We are not completely sure as to what may have triggered this episode of seizure, but we believe it may be related to your history of stroke and its residual effects. Since you have been stable and have not had a recurrence of seizures during this admission, we will be discharging you home today. In an effort to decrease the chance of additional seizures, we have increased your Lamotrigine dose to 225 mg twice daily (to reach this dose, you can take your 200 mg tab and at the same time add a 25 mg tab of lamotrigine which we have sent to your pharmacy), and we advise you continue to take your Depakote 500 twice a day as you have been. We also advise you follow up with your neurologist in their office around 2-3 weeks after you are discharged. A discharge summary will be sent to your primary care physician to ensure continuity of care. Please bring this discharge summary with you to your next office appointment so that your provider can review it at that time. CONTACT YOUR PRIMARY CARE PROVIDER if you experience any of the following: Worsening of symptoms Fever, chills, or fatigue Difficulty following your treatment plan, or difficulty taking medications CALL 911 OR GO TO THE EMERGENCY DEPARTMENT if you experience any of the following: Sudden, severe abdominal pain or nausea/vomiting Severe chest pain, or chest pain that radiates (moves) to your jaw or arm Sudden, severe shortness of breath or difficulty breathing Thank you for allowing us to participate in your care. Pending Studies at Discharge: No Stand-Alone Forms: My [facility] [facility], Smoking Cessation Medications and DC Order Prescriptions: New lamotrigine [Lamictal] 25 mg tablet 25 mg PO BID Qty: 60 0RF Continued divalproex 250 mg tablet extended release 24 hr 500 mg PO BID 30 Days Qty: 120 5RF lamotrigine 200 mg tablet 200 mg PO BID Qty: 60 5RF propranolol 80 mg capsule,extended release 24hr 80 mg PO DAILY Qty: 30 5RF levothyroxine 125 mcg tablet 125 mcg PO DAILY Qty: 90 3RF Discharge Orders: Discharge Order (Routine); Ordered 03/19/25 Ordered By: Nina Dunlap Admission Data Admit Date/Time: 03/18/25 05:46 Attending Provider: Tee Valdez Admit Provider: Tee Valdez Primary Care Provider: Sade Laura V. Other Providers: Renea Tran; Vini Meadows Supervising Physician Co-Signing Physician Notes I personally examined the patient and verified all red points of history and exam, discussed case, and agree with decision making with Dr Owens Feels okay. Feels like himself. Would very much like to go home.. Vitals noted, in general he is awake and alert fatigued no acute distress. Breathing unlabored no accessory muscle use good effort. Skin without rashes pallor or icterus. Imaging noted. Acute breakthrough seizure superimposed on chronic seizure disorder. Unknown duration of seizure. Back to baseline. Seen by neurologyincreasing Lamictal to 225 twice daily, ongoing outpatient follow-up. Cerebrovascular disease with chronic hemiplegic cerebral palsy related to prior very large MCA strokechronic regimen/supportive care acute urinary retentionlikely has some degree of underlying BPH. Catheter drainage for now. Voiding trial Was successful, safe for home DVT prophylaxisSCDs safe/stable for home.
[2025-03-19 11:18] VITALS: TEMP 98.1
[2025-03-19 15:41] VITALS: BP 108/58; PULSE 77
--- NOTE | 2025-03-19 15:51 | Billing Data ---
Date of Service March 19, 2025 Coding Level of Care Code 97316 IN/OBS DISCH 30 MIN/LESS
== END 2025-03-19 18:01 | disposition home or self-care (01) | DRG 101 ==
LOC: SUATTDRO → ED 02:16 → 2E 05:46